=== PATIENT | female | born 1985 | race Caucasian/White ===

== ENCOUNTER 2016-05-08 16:00 | Emergency (ER) | payer SELFPAY ==
[~2016-05-08 16:00] MED LIST: Sodium Chloride 0.9% 1,000 ML BAG ONE
[2016-05-08] MEDS ORDERED: Ondansetron ODT 4 MG TAB ONE (17:08)
[2016-05-08] MEDS ORDERED: diphenhydrAMINE HCl 50 MG/ML 1 ML VIAL ONE (17:34)
[2016-05-08] MEDS ORDERED: Ketorolac Tromethamine 30 MG/ML VIAL ONE (17:34)
[2016-05-08] MEDS ORDERED: Dexamethasone 10 MG/ML VIAL ONE (17:34)
[2016-05-08] MEDS ORDERED: methylPREDNISolone Sod Succ/PF 125 MG/2 ML VIAL ONE (17:34)
[2016-05-08 18:43] LABS: Bilirubin Negative (Negative); Blood, Urine Large (Negative); Clarity Cloudy (Clear); Glucose, Urine (Dipstick) Negative (Negative); Leukocyte Negative (Negative); Nitrite Negative (Negative); Protein, Urine (Dipstick) Trace mg/dL (Neg-Trace); Urobilinogen 0.2 mg/dL (0.2-1.0)
[2016-05-08 18:48] LABS: Bacteria/HPF 3+ HPF (None Seen); RBC/HPF GREATER THAN 50-TNTC HPF (0-3)
[2016-05-08] MEDS ORDERED: cefTRIAXone\\ROCEPHIN 1 GM VIAL ONE (19:15)
== END 2016-05-08 19:50 | disposition home or self-care (01) ==
LOC: MADERS 16:00
DX: J06.9 Acute upper respiratory infection, unspecified (principal); N39.0 Urinary tract infection, site not specified; F17.210 Nicotine dependence, cigarettes, uncomplicated
CPT/HCPCS: 81003; 81015; 87086; 87430; 96361; 96374; 96375; J0696; J1100; J1200; J1885; J2270; J2930; J7050; Q0162

== ENCOUNTER 2016-05-16 16:57 | Emergency (ER) | payer SELFPAY ==
[2016-05-16] MEDS ORDERED: traMADol HCl 50 MG TAB ONE (18:19)
[2016-05-16] MEDS ORDERED: predniSONE 20 MG TAB ONE ×2 (18:19→18:22)
[2016-05-16] MEDS ORDERED: predniSONE 10 MG TAB ONE (18:19)
[2016-05-16] MEDS ORDERED: Amoxicillin/Potassium Clav 500 MG TAB ONE (18:19)
== END 2016-05-16 18:30 | disposition home or self-care (01) ==
LOC: MADERS 16:57
DX: J20.9 Acute bronchitis, unspecified (principal); F17.210 Nicotine dependence, cigarettes, uncomplicated
CPT/HCPCS: 99283; J7506; J7512

== ENCOUNTER 2016-06-24 18:29 | Emergency (ER) | payer SELFPAY ==
[~2016-06-24 18:29] MED LIST changes: +Iopamidol 370 76% 100 ML VIAL ONE; -Sodium Chloride 0.9% 1,000 ML BAG ONE
[2016-06-24 18:51] LABS: Bilirubin Negative (Negative); Blood, Urine Negative (Negative); Clarity Clear (Clear); Glucose, Urine (Dipstick) Negative (Negative); Leukocyte Negative (Negative); Nitrite Negative (Negative); Protein, Urine (Dipstick) Negative (Neg-Trace); Specific Gravity, Urine 1.015 (1.005-1.030); Urobilinogen 0.2 mg/dL (0.2-1.0)
[2016-06-24 18:53] LABS: Pregnancy Test - Urine (BHCG) NEGATIVE (NEGATIVE); Pregu Control Bar Appear? YES (CONTROL BAR); Specific Gravity 1.015 (1.002-1.036)
[2016-06-24 19:01] LABS: Bilirubin Negative (Negative); Blood, Urine Negative (Negative); Clarity Clear (Clear); Glucose, Urine (Dipstick) Negative (Negative); Leukocyte Negative (Negative); Nitrite Negative (Negative); Protein, Urine (Dipstick) Negative (Neg-Trace); Specific Gravity, Urine 1.015 (1.005-1.030); Urobilinogen 0.2 mg/dL (0.2-1.0)
[2016-06-24 19:02] LABS: Bacteria/HPF Rare-Few HPF (None Seen); RBC/HPF 0-3 HPF (0-3); WBC/HPF 0-3 HPF (0-3)
[2016-06-24] MEDS ORDERED: Ketorolac Tromethamine 30 MG/ML VIAL ONE (19:13)
[2016-06-24] MEDS ORDERED: Ondansetron HCl/PF 4 MG/2 ML Vial ONE (19:13)
[2016-06-24 19:21] LABS: #Basophils 0.1 thou/uL (0.0-0.2); #Eosinphils 0.1 thou/uL (0.0-0.7); #Lymphocytes 3.7 thou/uL (1.20-3.40); #Monocytes 0.5 thou/uL (0.11-0.59); #Neutrophils 4.2 thou/uL (1.40-6.50); %Basophils 0.9 % (0.0-1.0); %Eosinophils 1.6 % (0.0-10.0); %Lymphocytes 43.2 % (21.0-51.0); %Monocytes 5.6 % (0.0-10.0); %Neutrophils 48.7 % (42.0-75.0); Hemoglobin 11.9 g/dL (12.0-16.0); Mean Corpuscular HGB CONC 30.9 g/dL (32.0-36.0); Mean Corpuscular Hemoglobin 28.1 pg (27.0-31.0); Mean Corpuscular Volume 90.7 fl (81.0-99.0); Mean Platelet Volume 6.3 fL (7.4-10.4); Platelet Count 285 thou/uL (130-400); RBC Distribution Width 16.5 % (11.5-14.5); Red Blood Cell (RBC) Count 4.23 mill/uL (4.20-5.40); White Blood Cell (WBC) Count 8.6 thou/uL (4.8-10.8)
[2016-06-24 19:39] LABS: ALT (SGPT) 13 U/L (0-55); AST (SGOT) 13 U/L (5-34); Alkaline Phosphatase 115 U/L (40-150); Anion Gap 16 mmol/L (10-20); BUN (Urea Nitrogen) 8 mg/dL (7.0-18.7); Bilirubin, Total Less than 0.3 mg/dL (0.2-1.2); CRP (Inflammatory) 0.74 mg/dL (= or < 0.5); Calc. Creatinine Clearance 0 mL/min (70-130); Calcium 9.8 mg/dL (7.8-10.44); Carbon Dioxide 24 mmol/L (22-29); Chloride 103 mmol/L (98-107); Estimated GFR-MDRD 87; Globulin 3.3 g/dL (2.4-3.5); Glucose 97 mg/dL (70-105); Potassium 3.7 mmol/L (3.5-5.1); Protein, Total 7.3 g/dL (6.0-8.3); Sodium 139 mmol/L (136-145)
--- NOTE | 2016-06-24 20:05 | CT ---
CT ABDOMEN AND PELVIS WITH CONTRAST 06/24/16 Multiple axial tomograms obtained through the abdomen and pelvis with IV enhancement. Oral contrast was not given. HISTORY: Severe low back pain. Liver, spleen, and pancreas unremarkable. Stomach and duodenum unremarkable. Post cholecystectomy ch anges are noted. Adrenal gland and kidneys unremarkable. No evidence of hydronephrosis. No evidence of urinary tract calculus. Small bowel loops appear normal. Appendix not definitely identified. Colon unremarkable. Images thro ugh the pelvis reveal a septated cystic mass posterior to the uterus and slightly to the right of mi dline which measures 8 cm AP dimension x approximately 5 cm width. There is a second smaller cystic lesion which appears to arise from the right ovary measuring 2.0 cm. The uterus is unremarkable in s ize. IMPRESSION: A large septated cystic mass in the pelvis posterior to the uterus slightly to the right. This abuts the posterior aspect of the ovary and may be an exophytic cyst from the ovary, although this cannot be confirmed. There is a smaller cyst that does involve the right ovary as described above. Recomme nd serum HCG to exclude ectopic . If serum HCG is negative, suggest [facility] consultation and fo llowup. CT LUMBAR SPINE: Sagittal and coronal images of lumbar spine obtained. The lumbar vertebrae maintain normal height an d alignment. Broad based disc bulge is seen at L2-3, L3-4, and L4-5 without disc protrusion. Mild ce ntral canal stenosis is noted. POS: [facility]
[2016-06-24 21:46] LABS: BHCG - Serum NEGATIVE (NEGATIVE); Pregs Control Background? CLEAR/WHITE (CLR/WHITE); Pregs Control Bar Appear? YES (CONTROL BAR)
== END 2016-06-24 22:20 | disposition home or self-care (01) ==
LOC: MADERS 18:29
DX: M54.5 Low back pain (principal); F17.210 Nicotine dependence, cigarettes, uncomplicated
CPT/HCPCS: 74177; 80053; 81003; 81025; 84702; 84703; 85025; 86140; 87086; 96374; 96375; 96376; J1885; J2270; J2405

== ENCOUNTER 2016-07-03 19:20 | Emergency (ER) | payer SELFPAY ==
[2016-07-03] MEDS ORDERED: HYDROcodone/Acetaminophen 10/325 mg Tablet ONE (21:07)
[2016-07-03] MEDS ORDERED: Naproxen 500 MG TAB ONE (21:07)
[2016-07-03] MEDS ORDERED: diphenhydrAMINE HCl 25 MG CAP ONE (21:07)
== END 2016-07-03 21:26 | disposition home or self-care (01) ==
LOC: MADERS 19:20
DX: S20.162A Insect bite (nonvenomous) of breast, left breast, initial encounter (principal); M54.2 Cervicalgia; F17.210 Nicotine dependence, cigarettes, uncomplicated; W57.XXXA Bitten or stung by nonvenomous insect and other nonvenomous arthropods, initial encounter
CPT/HCPCS: 96372; J1040

== ENCOUNTER 2016-07-16 18:11 | Emergency (ER) | payer MEDICAID, SELFPAY ==
[2016-07-16] MEDS ORDERED: Ketorolac Tromethamine 60 MG/2 ML VIAL ONE (18:40)
[2016-07-16] MEDS ORDERED: HYDROcodone/Acetaminophen 5/325 mg Tablet ONE (19:15)
[2016-07-16] MEDS ORDERED: Ondansetron ODT 4 MG TAB ONE (19:17)
== END 2016-07-16 20:00 | disposition home or self-care (01) ==
LOC: MADERS 18:11
DX: M54.5 Low back pain (principal); F17.210 Nicotine dependence, cigarettes, uncomplicated
CPT/HCPCS: 96372; J1885; Q0162

== ENCOUNTER 2016-08-24 11:33 | Outpatient (CLI) | payer MEDICAID ==
[2016-08-24 12:19] LABS: #Basophils 0.1 thou/uL (0.0-0.2); #Eosinphils 0.3 thou/uL (0.0-0.7); #Lymphocytes 2.9 thou/uL (1.20-3.40); #Monocytes 0.7 thou/uL (0.11-0.59); %Basophils 0.6 % (0.0-1.0); %Eosinophils 2.7 % (0.0-10.0); %Lymphocytes 26.6 % (21.0-51.0); %Monocytes 6.6 % (0.0-10.0); %Neutrophils 63.5 % (42.0-75.0); Hemoglobin 12.2 g/dL (12.0-16.0); Mean Corpuscular HGB CONC 31.3 g/dL (32.0-36.0); Mean Corpuscular Hemoglobin 28.6 pg (27.0-31.0); Mean Corpuscular Volume 91.5 fl (81.0-99.0); Mean Platelet Volume 6.4 fL (7.4-10.4); Platelet Count 335 thou/uL (130-400); RBC Distribution Width 16.5 % (11.5-14.5); Red Blood Cell (RBC) Count 4.27 mill/uL (4.20-5.40); White Blood Cell (WBC) Count 11.1 thou/uL (4.8-10.8)
[2016-08-24 12:37] LABS: ALT (SGPT) 13 U/L (8-55); AST (SGOT) 14 U/L (5-34); Albumin 3.7 g/dL (3.5-5.0); Alkaline Phosphatase 119 U/L (40-150); Anion Gap 11 mmol/L (10-20); BUN (Urea Nitrogen) 11 mg/dL (7.0-18.7); Bilirubin, Total Less than 0.3 mg/dL (0.2-1.2); Calc. Creatinine Clearance 0 mL/min (70-130); Calcium 8.8 mg/dL (7.8-10.44); Carbon Dioxide 25 mmol/L (22-29); Cardiac Risk 4.7 (Less than 4.5); Chloride 104 mmol/L (98-107); Cholesterol 180 mg/dl (< 200 Desired); Estimated GFR-MDRD Greater than 90; Globulin 3.8 g/dL (2.4-3.5); Glucose 117 mg/dL (70-105); HDL Cholesterol 38 mg/dL (>60 Neg Risk); LDL Cholesterol, Calculated 109 mg/dL; Protein, Total 7.5 g/dL (6.0-8.3); Sodium 136 mmol/L (136-145); Triglycerides 167 mg/dL (Less than 150)
== END 2016-08-24 11:34 | disposition home or self-care (01) ==
LOC: MADLAB 11:33
DX: Z00.00 Encounter for general adult medical examination without abnormal findings (principal); E55.9 Vitamin D deficiency, unspecified; R53.83 Other fatigue; R19.07 Generalized intra-abdominal and pelvic swelling, mass and lump
CPT/HCPCS: 36415; 80050; 80061; 86304

== ENCOUNTER 2016-08-29 09:16 | Emergency (ER) | payer MEDICAID ==
[2016-08-29 10:07] LABS: Bilirubin Negative (Negative); Blood, Urine Trace (Negative); Clarity Clear (Clear); Glucose, Urine (Dipstick) Negative (Negative); Leukocyte Negative (Negative); Nitrite Negative (Negative); Protein, Urine (Dipstick) Negative (Neg-Trace); Urobilinogen 0.2 mg/dL (0.2-1.0)
[2016-08-29 10:08] LABS: Pregnancy Test - Urine (BHCG) Negative (Negative); Pregu Control Background? CLEAR/WHITE (CLR/WHITE); Pregu Control Bar Appear? YES (CONTROL BAR)
[2016-08-29 10:08] LABS: Bacteria/HPF Rare-Few HPF (None Seen); RBC/HPF 0-3 HPF (0-3); Squamous Epithelial 0-3 HPF (0-3); WBC/HPF 0-3 HPF (0-3)
[2016-08-29] MEDS ORDERED: HYDROcodone/Acetaminophen 5/325 mg Tablet ONE (10:09)
[2016-08-29] MEDS ORDERED: Ketorolac Tromethamine 60 MG/2 ML VIAL ONE (10:10)
== END 2016-08-29 10:50 | disposition home or self-care (01) ==
LOC: MADERS 09:16
DX: N85.8 Other specified noninflammatory disorders of uterus (principal); F17.210 Nicotine dependence, cigarettes, uncomplicated
CPT/HCPCS: 81003; 81015; 81025; 96372; J1885

== ENCOUNTER 2016-08-31 05:20 | Emergency (ER) | payer MEDICAID ==
[2016-08-31] MEDS ORDERED: Diazepam 5 MG TAB ONE ×2 (06:30→06:42)
[2016-08-31] MEDS ORDERED: Ketorolac Tromethamine 60 MG/2 ML VIAL ONE (06:30)
[2016-08-31] MEDS ORDERED: HYDROcodone/Acetaminophen 10/325 mg Tablet ONE ×2 (06:30→06:42)
[2016-08-31] MEDS ORDERED: Ketorolac Tromethamine 30 MG/ML VIAL ONE (06:43)
[2016-08-31] MEDS ORDERED: Sodium Chloride 0.9% 1,000 ML BAG ONE (07:35)
[2016-08-31 07:55] LABS: #Basophils 0.1 thou/uL (0.0-0.2); #Eosinphils 0.2 thou/uL (0.0-0.7); #Lymphocytes 2.7 thou/uL (1.20-3.40); #Monocytes 0.7 thou/uL (0.11-0.59); %Basophils 0.5 % (0.0-1.0); %Lymphocytes 23.1 % (21.0-51.0); %Monocytes 6.2 % (0.0-10.0); %Neutrophils 68.2 % (42.0-75.0); Hemoglobin 10.8 g/dL (12.0-16.0); Mean Corpuscular HGB CONC 31.8 g/dL (32.0-36.0); Mean Corpuscular Hemoglobin 28.6 pg (27.0-31.0); Mean Platelet Volume 6.7 fL (7.4-10.4); Platelet Count 328 thou/uL (130-400); RBC Distribution Width 16.4 % (11.5-14.5); Red Blood Cell (RBC) Count 3.78 mill/uL (4.20-5.40); White Blood Cell (WBC) Count 11.7 thou/uL (4.8-10.8)
[2016-08-31 08:06] LABS: Anion Gap 11 mmol/L (10-20); BUN (Urea Nitrogen) 11 mg/dL (7.0-18.7); Calc. Creatinine Clearance 0 mL/min (70-130); Calcium 8.7 mg/dL (7.8-10.44); Carbon Dioxide 22 mmol/L (22-29); Chloride 109 mmol/L (98-107); Estimated GFR-MDRD Greater than 90; Glucose 103 mg/dL (70-105); Potassium 4.2 mmol/L (3.5-5.1); Sodium 138 mmol/L (136-145)
--- NOTE | 2016-08-31 08:06 | ULT ---
PELVIC SONOGRAM TRANSABDOMINAL AND TRANSVAGINAL IMAGING WITH DUPLEX EVALUATION: Date: 08/31/16 HISTORY: Pelvic pain. Bleeding. Pelvic mass on recent CT. FINDINGS: Urinary bladder is unremarkable. The uterus has a very heterogeneous echotexture and measures up to 9.9 cm in length. Endometrium is 0.9 cm in thickness. A fibroid involving the posterior myometrium i s 7.7 x 5.9 x 4.3 cm greatest diameter. The right ovary is 1.8 cm in length and the left is 1.6 cm. Each contains follicles and demonstrates good color and spectral Doppler flow. The large right adnexal cystic lesion seen on prior CT from 0 06/24/16 is not evidence on today's study. IMPRESSION: Large posterior uterine fibroid. POS: [facility]
[2016-08-31] MEDS ORDERED: Gabapentin 100 MG CAP ONE (08:47)
[2016-08-31 10:34] LABS: Bilirubin Negative (Negative); Clarity Clear (Clear); Glucose, Urine (Dipstick) Negative (Negative); Leukocyte Trace (Negative); Nitrite Negative (Negative); Protein, Urine (Dipstick) Negative (Neg-Trace); Urobilinogen 0.2 mg/dL (0.2-1.0); pH, Urine 7.5 (5.0-9.0)
[2016-08-31 10:35] LABS: Bacteria/HPF Rare-Few HPF (None Seen); Blood, Urine Large (Negative); RBC/HPF 21-50 HPF (0-3); Squamous Epithelial 0-3 HPF (0-3); WBC/HPF 0-3 HPF (0-3)
--- NOTE | 2016-08-31 10:52 | CT ---
CT LUMBAR SPINE NONCONTRAST: Date: 08/31/16 HISTORY: Low back pain. Pelvic mass. FINDINGS: Vertebral body height and alignment are maintained. Mild posterior disc bulges are present at the L2 -3, L3-4, and L4-5 levels. No focal disc herniation is apparent. The neural foramina remain patent. Vertebral body heights and alignment are maintained. No acute fracture or dislocation are evident. Scattered dystrophic calcifications are apparent within the anterior lower abdominal fat. Partially visualized within the right posterior pelvis, a lobulated low density mass containing an i nternal septation now measures up to 8.2 x 5.3 cm greatest diameter, slightly larger than on the wilbur or study. A 2.0 mm calculus is present within the nondilated ronan at the superior pole of the left kidney. IMPRESSION: 1. Mild degenerative changes of the lumbar spine. No acute osseous abnormalities are demonstrated. 2. Tiny nonobstructing left renal calculus. 3. Persistent large low density right posterior pelvic mass, near the right ovary but favored to no t arise from the ovary. While it was thought to be a uterine fibroid on recent sonogram, it appears separate from the uterus on this study. Differential diagnosis is that of a complex adnexal mass. En dometrioma must be considered. Please consider gynecologic consultation and pelvic MRI, with and wit hout Gadolinium contrast, for better characterization. 4. Mild degenerative changes of the lumbar spine. 5. Tiny, nonobstructing left renal calculus. Findings called to Dr. Merrill in the [place] emergency department at 1030 hours. CODE CR. POS: [facility]
--- NOTE | 2016-08-31 10:56 | CT ---
CT OF PELVIS NONCONTRAST: INDICATION: Pelvic pain. FINDINGS: Hip joints are maintained. Symphysis pubis and sacroiliac joints are intact. Small sclerotic focus of the left acetabulum indicates bone island. There is no acute pelvic fracture. There is a large cystic lesion of the posterior right pelvis, with probable internal septation, although incompletel y assessed by noncontrast pelvic CT. Diameter of this finding is greater than 7 cm. IMPRESSION: 1. No acute osseous abnormality of the pelvis. 2. Incidental note of a large cystic lesion of the pelvis. Please reference the concurrent CT lumb ar spine evaluation for details regarding characterization/followup. POS: [facility]
== END 2016-08-31 13:07 | disposition short-term general hospital (02) ==
LOC: MADERS 05:20
DX: G90.522 Complex regional pain syndrome I of left lower limb (principal); F17.210 Nicotine dependence, cigarettes, uncomplicated; Z79.899 Other long term (current) drug therapy
CPT/HCPCS: 72131; 72192; 76856; 80048; 81003; 81015; 85025; 96361; 96374; 96376; J1170; J1885; J7050

== ENCOUNTER 2016-09-12 09:41 | Emergency (ER) | payer MEDICAID, SELFPAY ==
[2016-09-12] MEDS ORDERED: Ondansetron HCl/PF 4 MG/2 ML Vial ONE (10:01)
[2016-09-12] MEDS ORDERED: Dicyclomine HCl 20 mg/2 ml Ampule ONE (10:01)
[2016-09-12] MEDS ORDERED: Ketorolac Tromethamine 30 MG/ML VIAL ONE (10:01)
[2016-09-12 10:26] LABS: Bilirubin Negative (Negative); Blood, Urine Negative (Negative); Clarity Clear (Clear); Glucose, Urine (Dipstick) Negative (Negative); Leukocyte Negative (Negative); Nitrite Negative (Negative); Protein, Urine (Dipstick) Negative (Neg-Trace); Urobilinogen 0.2 mg/dL (0.2-1.0); pH, Urine 8.5 (5.0-9.0)
[2016-09-12 10:29] LABS: Pregnancy Test - Urine (BHCG) Negative (Negative); Pregu Control Background? CLEAR/WHITE (CLR/WHITE); Pregu Control Bar Appear? YES (CONTROL BAR)
[2016-09-12 10:38] LABS: #Basophils 0.1 thou/uL (0.0-0.2); #Eosinphils 0.1 thou/uL (0.0-0.7); #Lymphocytes 1.7 thou/uL (1.20-3.40); #Monocytes 0.5 thou/uL (0.11-0.59); #Neutrophils 9.5 thou/uL (1.40-6.50); %Basophils 0.7 % (0.0-1.0); %Eosinophils 0.8 % (0.0-10.0); %Lymphocytes 13.8 % (21.0-51.0); %Monocytes 4.5 % (0.0-10.0); %Neutrophils 80.2 % (42.0-75.0); Hemoglobin 12.4 g/dL (12.0-16.0); Mean Corpuscular HGB CONC 31.4 g/dL (32.0-36.0); Mean Corpuscular Hemoglobin 28.4 pg (27.0-31.0); Mean Corpuscular Volume 90.3 fl (81.0-99.0); Mean Platelet Volume 6.8 fL (7.4-10.4); Platelet Count 290 thou/uL (130-400); RBC Distribution Width 15.8 % (11.5-14.5); Red Blood Cell (RBC) Count 4.36 mill/uL (4.20-5.40); White Blood Cell (WBC) Count 11.9 thou/uL (4.8-10.8)
[2016-09-12 10:42] LABS: ALT (SGPT) 17 U/L (8-55); AST (SGOT) 19 U/L (5-34); Albumin 3.8 g/dL (3.5-5.0); Alkaline Phosphatase 112 U/L (40-150); Anion Gap 16 mmol/L (10-20); BUN (Urea Nitrogen) 9 mg/dL (7.0-18.7); Bilirubin, Total 0.3 mg/dL (0.2-1.2); Calc. Creatinine Clearance 0 mL/min (70-130); Calcium 9.3 mg/dL (7.8-10.44); Carbon Dioxide 18 mmol/L (22-29); Chloride 106 mmol/L (98-107); Estimated GFR-MDRD Greater than 90; Globulin 3.8 g/dL (2.4-3.5); Glucose 124 mg/dL (70-105); Lipase 32 U/L (8-78); Potassium 3.9 mmol/L (3.5-5.1); Protein, Total 7.6 g/dL (6.0-8.3); Sodium 136 mmol/L (136-145)
--- NOTE | 2016-09-12 10:44 | CT ---
CT BRAIN NONCONTRAST: HISTORY: 30-year-old female with altered mental status. FINDINGS: The ventricles are normal in size and configuration. There is no midline shift or any other mass ef fect. There is no evidence of acute intracranial hemorrhage, large cortical infarct, or extraaxial fluid collection. The osorio matter /white matter differentiation is maintained. The calvarium is in tact. The tympanomastoid cavities, and the upper portions of the paranasal sinuses included in thes e images, are grossly clear. IMPRESSION: Normal. nithya POS: [facility]
== END 2016-09-12 11:12 | disposition home or self-care (01) ==
LOC: MADERS 09:41
DX: R10.13 Epigastric pain (principal); R06.4 Hyperventilation; F17.210 Nicotine dependence, cigarettes, uncomplicated; Z87.442 Personal history of urinary calculi
CPT/HCPCS: 36416; 70450; 80053; 81003; 81025; 83690; 85025; 93005; 96372; 96374; 96375; 36415-59; J1885; J2405

== ENCOUNTER 2017-01-08 16:28 | Emergency (ER) | payer MEDICAID, OTHER ==
[~2017-01-08 16:28] MED LIST changes: -Iopamidol 370 76% 100 ML VIAL ONE; +Sodium Chloride 0.9% 1,000 ML BAG ONE
[2017-01-08 17:04] LABS: Bilirubin Negative (Negative); Blood, Urine Large (Negative); Clarity Clear (Clear); Glucose, Urine (Dipstick) Negative (Negative); Leukocyte Negative (Negative); Nitrite Negative (Negative); Protein, Urine (Dipstick) Trace mg/dL (Neg-Trace); Urobilinogen 0.2 mg/dL (0.2-1.0)
[2017-01-08 17:09] LABS: RBC/HPF GREATER THAN 50-TNTC HPF (0-3)
[2017-01-08 17:52] LABS: Squamous Epithelial 0-3 HPF (0-3); WBC/HPF 0-3 HPF (0-3)
[2017-01-08 17:53] LABS: Bacteria/HPF Rare-Few HPF (None Seen)
[2017-01-08] MEDS ORDERED: Morphine 10 MG/ML VIAL ONE ×3 (18:01→21:49)
[2017-01-08] MEDS ORDERED: Ondansetron HCl/PF 4 MG/2 ML Vial ONE (18:01)
[2017-01-08] MEDS ORDERED: Ketorolac Tromethamine 30 MG/ML VIAL ONE (18:01)
[2017-01-08] MEDS ORDERED: HYDROcodone/Acetaminophen 10/325 mg Tablet ONE (18:32)
[2017-01-08] MEDS ORDERED: Naproxen 500 MG TAB ONE (18:32)
[2017-01-08] MEDS ORDERED: Sulfameth/Trimethoprim DS 800-160mg TAB ONE (19:23)
[2017-01-08] MEDS ORDERED: cefTRIAXone\\ROCEPHIN 2 GM VIAL ONE (19:23)
--- NOTE | 2017-01-08 19:49 | CT ---
ABDOMEN AND PELVIC CT SCAN WITHOUT IV CONTRAST: History: 31-year-old female with left flank pain. FINDINGS: Noncontrast abdomen and pelvis CT scan performed. The lung base are clear. Status post cholecystecto my. Visualized liver, pancreas, spleen and adrenal glands are unremarkable. A small punctate nonobst ructing left upper pole renal calculus. No evidence for acute obstruction. Normal appearing appen roni. Large 5.0 x 8.1 cm diameter septated right adnexal cyst or cystic mass which appears to be sept ated. It does not appear to be significantly changed from a 06-14-16 study and was present back on study, although may be very slightly larger now. No abscess or abnormal fluid collection. Smal l scattered right lower quadrant mesenteric lymph nodes. IMPRESSION: No significant acute process in the abdomen or pelvis. Tiny nonobstructing left upper pole renal parminder culus, but no acute obstruction. Normal appearing appendix. Overall stable septated right adnexal cystic mass. POS: [facility]
[2017-01-08 20:39] LABS: #Basophils 0.1 thou/uL (0.0-0.2); #Eosinphils 0.1 thou/uL (0.0-0.7); #Lymphocytes 3.4 thou/uL (1.20-3.40); #Monocytes 0.7 thou/uL (0.11-0.59); #Neutrophils 5.4 thou/uL (1.40-6.50); %Basophils 0.7 % (0.0-1.0); %Eosinophils 0.6 % (0.0-10.0); %Lymphocytes 35.5 % (21.0-51.0); %Monocytes 6.8 % (0.0-10.0); %Neutrophils 56.5 % (42.0-75.0); Mean Corpuscular HGB CONC 31.5 g/dL (32.0-36.0); Mean Corpuscular Hemoglobin 29.2 pg (27.0-31.0); Mean Corpuscular Volume 92.8 fl (81.0-99.0); Platelet Count 290 thou/uL (130-400); RBC Distribution Width 16.8 % (11.5-14.5); Red Blood Cell (RBC) Count 3.78 mill/uL (4.20-5.40); White Blood Cell (WBC) Count 9.5 thou/uL (4.8-10.8)
[2017-01-08 20:59] LABS: ALT (SGPT) 35 U/L (8-55); AST (SGOT) 16 U/L (5-34); Albumin 3.5 g/dL (3.5-5.0); Alkaline Phosphatase 116 U/L (40-150); Anion Gap 12 mmol/L (10-20); BUN (Urea Nitrogen) 8 mg/dL (7.0-18.7); Bilirubin, Total Less than 0.3 mg/dL (0.2-1.2); Calc. Creatinine Clearance 0 mL/min (70-130); Calcium 8.6 mg/dL (7.8-10.44); Carbon Dioxide 24 mmol/L (22-29); Chloride 110 mmol/L (98-107); Estimated GFR-MDRD Greater than 90; Globulin 3.1 g/dL (2.4-3.5); Glucose 82 mg/dL (70-105); Protein, Total 6.6 g/dL (6.0-8.3); Sodium 142 mmol/L (136-145)
== END 2017-01-08 21:57 | disposition home or self-care (01) ==
LOC: MADERS 16:28
DX: R10.9 Unspecified abdominal pain (principal); F17.210 Nicotine dependence, cigarettes, uncomplicated; Z79.899 Other long term (current) drug therapy
CPT/HCPCS: 74176; 80053; 81001; 85025; 87086; 96365; 96375; 96376; J0696; J1885; J2270; J2405; J7050

== ENCOUNTER 2017-03-10 16:47 | Emergency (ER) | payer OTHER ==
[~2017-03-10 16:47] MED LIST changes: +Iopamidol 370 76% 100 ML VIAL ONE; -Sodium Chloride 0.9% 1,000 ML BAG ONE
[2017-03-10 18:42] LABS: Bilirubin Negative (Negative); Blood, Urine Negative (Negative); Clarity Clear (Clear); Glucose, Urine (Dipstick) Negative (Negative); Leukocyte Negative (Negative); Nitrite Negative (Negative); Protein, Urine (Dipstick) Negative (Neg-Trace); Specific Gravity, Urine 1.015 (1.005-1.030); Urobilinogen 0.2 mg/dL (0.2-1.0)
[2017-03-10 19:05] LABS: ALT (SGPT) 15 U/L (8-55); AST (SGOT) 15 U/L (5-34); Albumin 3.8 g/dL (3.5-5.0); Alkaline Phosphatase 127 U/L (40-150); Anion Gap 15 mmol/L (10-20); BUN (Urea Nitrogen) 7 mg/dL (7.0-18.7); Bilirubin, Total 0.2 mg/dL (0.2-1.2); Calc. Creatinine Clearance 0 mL/min (70-130); Calcium 9.2 mg/dL (7.8-10.44); Carbon Dioxide 24 mmol/L (22-29); Chloride 106 mmol/L (98-107); Estimated GFR-MDRD Greater than 90; Globulin 3.9 g/dL (2.4-3.5); Glucose 101 mg/dL (70-105); Potassium 3.9 mmol/L (3.5-5.1); Protein, Total 7.7 g/dL (6.0-8.3); Sodium 141 mmol/L (136-145)
[2017-03-10] MEDS ORDERED: Ondansetron HCl/PF 4 MG/2 ML Vial ONE (19:09)
[2017-03-10] MEDS ORDERED: Morphine 4 MG/ML VIAL ONE (19:09)
[2017-03-10 19:44] LABS: #Basophils 0.1 thou/uL (0.0-0.2); #Eosinphils 0.9 thou/uL (0.0-0.7); #Lymphocytes 3.1 thou/uL (1.20-3.40); #Monocytes 0.5 thou/uL (0.11-0.59); #Neutrophils 6.3 thou/uL (1.40-6.50); %Eosinophils 8.1 % (0.0-10.0); %Lymphocytes 28.5 % (21.0-51.0); %Monocytes 4.3 % (0.0-10.0); %Neutrophils 58.1 % (42.0-75.0); Anisocytosis SLIGHT = 6-15 cells (100X) (0-5/hpf); Hemoglobin 10.2 g/dL (12.0-16.0); MDiff Complete? YES; Mean Corpuscular Volume 93.1 fl (81.0-99.0); Mean Platelet Volume 5.6 fL (7.4-10.4); Platelet Count 432 thou/uL (130-400); RBC Distribution Width 16.4 % (11.5-14.5); Red Blood Cell (RBC) Count 3.66 mill/uL (4.20-5.40); White Blood Cell (WBC) Count 10.9 thou/uL (4.8-10.8)
--- NOTE | 2017-03-10 22:22 | CT ---
CT OF THE ABDOMEN AND PELVIS WITH IV CONTRAST 03/10/17 INDICATION: Right leg numbness and pain since hysterectomy on 03/09/17. FINDINGS: The complex hypodense lesion involving the posterior aspect of the right hemipelvis is stable in size measuring 7.1 x 4.9 cm where it previously measured 7.9 x 5.2 cm on a comparison dated 06/24/16. Ther e is some internal increased density seen within the lesion that may reflect some interval hemorrhag e. This is closely abutting the right piriformis muscle and anterior aspect of the mid sacrum. The uterus is now surgically absent. No definite free fluid is evident. Unopacified small and large b owel appear within normal limits. Lung bases are clear. No free air is demonstrated. The gallbladder is surgically absent. There is a stable displaced stone seen within Castro's pouch. Kidneys, pancreas, and spleen appear within normal limits. No definite acute osseous abnormality is evident. IMPRESSION: 1. Interval hysterectomy. 2. Slight increased density seen within the hypodense mass previously noted on multiple CT exami nations may reflect interval hemorrhage within the lesion. This was suspected to reflect a possible e ndometrioma on a comparison pelvic ultrasound dated 08/31/16. MR examination may be helpful for improv ed characterization. Would also recommend correlation with the operative note from the patient's rece nt hysterectomy. 3. No free fluid is demonstrated. 4. Postsurgical changes of cholecystectomy with displaced spilled gallstones within Castro's p ouch which are stable to the prior exam. POS: [facility]
== END 2017-03-10 19:50 | disposition home or self-care (01) ==
LOC: MADERS 16:47
DX: G89.18 Other acute postprocedural pain (principal); R10.31 Right lower quadrant pain; F17.210 Nicotine dependence, cigarettes, uncomplicated
CPT/HCPCS: 74177; 80053; 81003; 85025; 96374; 96375; J2270; J2405

== ENCOUNTER 2017-03-28 11:44 | Emergency (ER) | payer OTHER, SELFPAY ==
[2017-03-28] MEDS ORDERED: Ketorolac Tromethamine 30 MG/ML VIAL ONE (12:30)
[2017-03-28 12:40] LABS: Bacteria/HPF Rare-Few HPF (None Seen); Bilirubin Negative (Negative); Blood, Urine Negative (Negative); Clarity Clear (Clear); Glucose, Urine (Dipstick) Negative (Negative); Leukocyte Negative (Negative); Nitrite Negative (Negative); Protein, Urine (Dipstick) Negative (Neg-Trace); RBC/HPF 0-3 HPF (0-3); Squamous Epithelial 0-3 HPF (0-3); Urobilinogen 0.2 mg/dL (0.2-1.0); WBC/HPF 0-3 HPF (0-3); pH, Urine 6.5 (5.0-9.0)
== END 2017-03-28 13:05 | disposition home or self-care (01) ==
LOC: MADERS 11:44
DX: S29.012A Strain of muscle and tendon of back wall of thorax, initial encounter (principal); M94.0 Chondrocostal junction syndrome [Tietze]; F41.9 Anxiety disorder, unspecified; F17.210 Nicotine dependence, cigarettes, uncomplicated; Z87.442 Personal history of urinary calculi; Z79.891 Long term (current) use of opiate analgesic; Z79.899 Other long term (current) drug therapy
CPT/HCPCS: 36416; 81001; 96372; J1885

== ENCOUNTER 2018-01-30 09:11 | Outpatient (CLI) | payer OTHER, SELFPAY ==
[2018-01-30 10:05] LABS: Amphetamine Not Detected (NotDetected); Barbiturates Screen Not Detected (NotDetected); Benzodiazepine Screen Detected (NotDetected); Cocaine Metabolite Screen Not Detected (NotDetected); Medtox Control Line Valid? VALID (VALID); Methadone Not Detected (NotDetected); Methamphetamine Not Detected (NotDetected); Opiate Screen Detected (NotDetected); Oxycodone Screen Not Detected (NotDetected); Phencyclidine (PCP) Not Detected (NotDetected); THC/Cannabinoid Screen Not Detected (NotDetected); Tricyclic Screen Not Detected (NotDetected)
== END 2018-01-30 09:12 | disposition home or self-care (01) ==
LOC: MADLABBHPM 09:11
PROVIDERS: ATTEND Family Medicine
DX: F41.1 Generalized anxiety disorder (principal); M54.42 Lumbago with sciatica, left side
CPT/HCPCS: 80306

== ENCOUNTER 2018-05-20 17:25 | Emergency (ER) | payer OTHER ==
[2018-05-20] MEDS ORDERED: Lorazepam 1 MG TAB ONE (17:56)
[2018-05-20] MEDS ORDERED: Haloperidol Lactate 5 MG/ML VIAL ONE (17:57)
== END 2018-05-20 19:00 | disposition home or self-care (01) ==
LOC: MADERS 17:25
DX: F41.1 Generalized anxiety disorder (principal); F17.210 Nicotine dependence, cigarettes, uncomplicated; Z79.899 Other long term (current) drug therapy
CPT/HCPCS: 93005; 96372; J1630

== ENCOUNTER 2018-06-20 04:22 | Emergency (ER) | payer OTHER ==
[2018-06-20] MEDS ORDERED: HYDROmorphone 0.5 MG/0.5 ML SYRINGE ONE (04:58)
[2018-06-20] MEDS ORDERED: HYDROcodone/Acetaminophen 5/325 mg Tablet ONE (05:33)
[2018-06-20] MEDS ORDERED: Acetaminophen 325 MG TAB ONE (05:33)
[2018-06-20] MEDS ORDERED: Ketorolac Tromethamine 30 MG/ML VIAL ONE (05:33)
--- NOTE | 2018-06-20 08:13 | CT ---
LUMBAR SPINE CT NONCONTRAST: INDICATION: Back pain. FINDINGS: Vertebral body heights and alignment are maintained. Disk space heights are preserved. There is no significant osseous compromise of the central canal or neural foramina. The osseous structures revea l no acute destructive lesion. Degenerative sclerosis as well as cyst formation is seen at each sacr oiliac joint. IMPRESSION: 1. No acute osseous abnormality of the lumbar spine. 2. There is a suggestion of a possible protrusion of L2-3 with effacement of the ventral thecal sac contents, although this is difficult to reliably characterize. Disk bulges are also suggested at L4- 5 and L5-S1. Recommend followup with MRI of lumbar spine for further characterization. CODE T POS: [facility]
--- NOTE | 2018-06-20 08:26 | CT ---
CT OF ABDOMEN AND PELVIS WITH CONTRAST: COMPARISON: 03/10/2017. CLINICAL HISTORY: Low back pain. History of mass. FINDINGS: The previously documented mass of the posterior right pelvic cavity has decreased in volume, now jose uring 4.8 x 3.3 cm, compared to 7.1 x 4.9 cm in a similar location on prior exam. The mixed-density portion of the mass, with extrinsic, relative hyperdensity along its right lateral aspect is redemons trated to indicate a partially cystic and solid mass. Solid abdominal organs are stable. Evidence of prior cholecystectomy. The bowel is incompletely lana luated without enteric contrast administration. The visualized lung bases are clear. There is proba ble sequelae from injection at the right gluteal soft tissues. IMPRESSION: Interval size reduction of previously documented mass of the posterior right pelvis which remains cys tic and solid in morphology. Size reduction could relate to interval resolution of internal hemorrha gic process, as was previously considered. A neoplastic process cannot be excluded on the basis of t his exam and, therefore, appropriate clinical management/followup should be continued. POS: [facility]
[2018-06-20] MEDS ORDERED: Iopamidol 370 76% 100 ML VIAL ONE (09:06)
== END 2018-06-20 06:35 | disposition home or self-care (01) ==
LOC: MADERS 04:22
DX: M54.5 Low back pain (principal); M79.10 Myalgia, unspecified site; F17.210 Nicotine dependence, cigarettes, uncomplicated; Z79.891 Long term (current) use of opiate analgesic; Z79.899 Other long term (current) drug therapy; Z87.442 Personal history of urinary calculi
CPT/HCPCS: 72132; 74177; 96372; 96374; J1170; J1885; Q9967

== ENCOUNTER 2018-06-26 17:56 | Emergency (ER) | payer OTHER ==
[2018-06-26] MEDS ORDERED: Prochlorperazine 10 MG/2 ML VIAL ONE (18:12)
[2018-06-26] MEDS ORDERED: Lorazepam 2 MG/ML VIAL ONE ×2 (18:12→18:28)
[2018-06-26] MEDS ORDERED: Sodium Chloride 0.9% 1,000 ML ONE (18:12)
[2018-06-26 18:34] LABS: ALT (SGPT) 295 U/L (8-55); AST (SGOT) 136 U/L (5-34); Alkaline Phosphatase 195 U/L (40-150); Anion Gap 22 mmol/L (10-20); BUN (Urea Nitrogen) 14 mg/dL (7.0-18.7); Bilirubin, Total 0.9 mg/dL (0.2-1.2); Calc. Creatinine Clearance 0 mL/min (70-130); Calcium 9.7 mg/dL (7.8-10.44); Carbon Dioxide 19 mmol/L (22-29); Chloride 99 mmol/L (98-107); Estimated GFR-MDRD Greater than 90; Globulin 4.1 g/dL (2.4-3.5); Glucose 108 mg/dL (70-105); Lipase 14 U/L (8-78); Protein, Total 8.1 g/dL (6.0-8.3); Sodium 136 mmol/L (136-145)
[2018-06-26 18:37] LABS: Hemoglobin 14.6 g/dL (12.0-16.0); Lymphocytes 12 % (21-51); MDiff Complete? YES; Mean Corpuscular HGB CONC 31.4 g/dL (32.0-36.0); Mean Corpuscular Hemoglobin 28.1 pg (27.0-31.0); Mean Corpuscular Volume 89.6 fL (78.0-98.0); Mean Platelet Volume 6.1 fL (7.4-10.4); Monocytes 3 % (0-10); Neutrophil 73 % (42-75); Platelet Count 313 thou/uL (130-400); Platelet Morphology Comment Appears Adequate; RBC Distribution Width 15.4 % (11.5-14.5); RBC Morphology Normal; Reactive Lymphocytes 12 % (0-10); Red Blood Cell (RBC) Count 5.19 mill/uL (4.20-5.40); White Blood Cell (WBC) Count 9.2 thou/uL (4.8-10.8)
[2018-06-26] MEDS ORDERED: Morphine 4 MG/ML VIAL ONE (18:59)
--- NOTE | 2018-06-26 19:04 | RAD ---
CHEST ONE VIEW: 06/26/18 HISTORY: Chest pain, shortness of breath. Heart size and mediastinum are within normal limits. The lungs appear clear of any infiltrative proce ss. No signs of failure. IMPRESSION: No active intrathoracic disease. POS: [facility]
[2018-06-26] MEDS ORDERED: Sodium Chloride 0.9% 100 ML ONE (19:39)
[2018-06-26] MEDS ORDERED: Piperacillin/Tazobactam 4.5 GM VIAL ONE (19:39)
[2018-06-26] MEDS ORDERED: Acetaminophen 500 MG TAB ONE (19:43)
[2018-06-26 20:37] LABS: Amphetamine Not Detected (NotDetected); Barbiturates Screen Not Detected (NotDetected); Benzodiazepine Screen Detected (NotDetected); Cocaine Metabolite Screen Not Detected (NotDetected); Medtox Control Line Valid? VALID (VALID); Methadone Not Detected (NotDetected); Methamphetamine Not Detected (NotDetected); Opiate Screen Detected (NotDetected); Oxycodone Screen Not Detected (NotDetected); Phencyclidine (PCP) Not Detected (NotDetected); THC/Cannabinoid Screen Detected (NotDetected); Tricyclic Screen Not Detected (NotDetected)
== END 2018-06-26 20:25 | disposition short-term general hospital (02) ==
LOC: MADERS 17:56
DX: B17.9 Acute viral hepatitis, unspecified (principal); R79.89 Other specified abnormal findings of blood chemistry; F41.9 Anxiety disorder, unspecified; F17.210 Nicotine dependence, cigarettes, uncomplicated; Z87.442 Personal history of urinary calculi; Z79.891 Long term (current) use of opiate analgesic; Z79.899 Other long term (current) drug therapy
CPT/HCPCS: 36415; 71045; 80053; 80306; 83605; 83690; 84443; 84484; 85025; 87040; 93005; 96361; 96365; 96375; J0780; J2060; J2270; J2543; J3490; J7050

== ENCOUNTER 2018-06-30 19:35 | Emergency (ER) | payer OTHER ==
[2018-06-30 20:35] LABS: Hemoglobin 13.9 g/dL (12.0-16.0); Hypochromia SLIGHT = 6-15 cells (100X) (0-5/hpf); MDiff Complete? YES; Mean Corpuscular HGB CONC 31.4 g/dL (32.0-36.0); Mean Corpuscular Hemoglobin 28.4 pg (27.0-31.0); Mean Corpuscular Volume 90.3 fL (78.0-98.0); Platelet Count 302 thou/uL (130-400); Platelet Morphology Comment Appears Adequate; RBC Distribution Width 15.7 % (11.5-14.5); RBC Morphology Abnormal
[2018-06-30 20:40] LABS: ALT (SGPT) 118 U/L (8-55); AST (SGOT) 58 U/L (5-34); Acetaminophen Less than 6.0 mcg/mL (10.0-30.0); Albumin 4.5 g/dL (3.5-5.0); Alcohol Less than 10 mg/dL (Less than 10); Alkaline Phosphatase 149 U/L (40-150); Anion Gap 15 mmol/L (10-20); BUN (Urea Nitrogen) 11 mg/dL (7.0-18.7); Bilirubin, Total 1.1 mg/dL (0.2-1.2); Calc. Creatinine Clearance 0 mL/min (70-130); Calcium 9.8 mg/dL (7.8-10.44); Carbon Dioxide 23 mmol/L (22-29); Chloride 107 mmol/L (98-107); Estimated GFR-MDRD 90; Globulin 3.7 g/dL (2.4-3.5); Glucose 104 mg/dL (70-105); Protein, Total 8.2 g/dL (6.0-8.3); Salicylate Less than 8.0 mg/dL (15.0-30.0); Sodium 142 mmol/L (136-145)
[2018-06-30] MEDS ORDERED: ALPRAZolam 0.5 MG TAB ONE (20:42)
[2018-06-30] MEDS ORDERED: HYDROmorphone 0.5 MG/0.5 ML SYRINGE ONE (20:43)
[2018-06-30 20:50] LABS: Potassium 2.8 mmol/L (3.5-5.1)
[2018-06-30] MEDS ORDERED: Potassium Chloride 20 MEQ TAB ONE (21:01)
[2018-06-30 22:15] LABS: Bilirubin Small (Negative); Blood, Urine Negative (Negative); Clarity Hazy (Clear); Glucose, Urine (Dipstick) Negative (Negative); Leukocyte Trace (Negative); Nitrite Negative (Negative); Protein, Urine (Dipstick) Trace mg/dL (Neg-Trace)
[2018-06-30 22:16] LABS: Pregnancy Test - Urine (BHCG) Negative (Negative); Pregu Control Background? CLEAR/WHITE (CLR/WHITE); Pregu Control Bar Appear? YES (CONTROL BAR)
[2018-06-30 22:21] LABS: Bacteria/HPF Rare-Few HPF (None Seen); RBC/HPF 0-3 HPF (0-3)
[2018-06-30 22:23] LABS: Amphetamine Not Detected (NotDetected); Barbiturates Screen Not Detected (NotDetected); Benzodiazepine Screen Not Detected (NotDetected); Cocaine Metabolite Screen Not Detected (NotDetected); Medtox Control Line Valid? VALID (VALID); Methadone Not Detected (NotDetected); Methamphetamine Not Detected (NotDetected); Opiate Screen Detected (NotDetected); Oxycodone Screen Not Detected (NotDetected); Phencyclidine (PCP) Not Detected (NotDetected); THC/Cannabinoid Screen Detected (NotDetected); Tricyclic Screen Not Detected (NotDetected)
[2018-06-30 22:50] LABS: #Monocytes 0.9 thou/uL (0.11-0.59); #Neutrophils 16.9 thou/uL (1.40-6.50); %Basophils 0.6 % (0.0-1.0); %Eosinophils 0.2 % (0.0-10.0); %Lymphocytes 18.2 % (21.0-51.0); %Monocytes 4.3 % (0.0-10.0); %Neutrophils 76.7 % (42.0-75.0); Manual Diff?? YES
[2018-06-30 22:51] LABS: #Basophils 0.1 thou/uL (0.0-0.2); Lymphocytes 22 % (21-51); Monocytes 4 % (0-10); Neutrophil 71 % (42-75); Reactive Lymphocytes 3 % (0-10)
[2018-06-30 23:35] LABS: #Basophils 0.1 thou/uL (0.0-0.2); #Lymphocytes 4.9 thou/uL (1.20-3.40); #Monocytes 0.9 thou/uL (0.11-0.59); #Neutrophils 16.2 thou/uL (1.40-6.50); %Basophils 0.5 % (0.0-1.0); %Eosinophils 0.2 % (0.0-10.0); %Lymphocytes 22.1 % (21.0-51.0); %Monocytes 4.1 % (0.0-10.0); %Neutrophils 73.2 % (42.0-75.0); Mean Corpuscular HGB CONC 32.1 g/dL (32.0-36.0); Mean Corpuscular Hemoglobin 28.8 pg (27.0-31.0); Mean Corpuscular Volume 89.8 fL (78.0-98.0); Mean Platelet Volume 5.8 fL (7.4-10.4); Platelet Count 285 thou/uL (130-400); RBC Distribution Width 16.3 % (11.5-14.5); Red Blood Cell (RBC) Count 4.52 mill/uL (4.20-5.40); White Blood Cell (WBC) Count 22.1 thou/uL (4.8-10.8)
[2018-06-30] MEDS ORDERED: Fentanyl 100 MCG/2 ML VIAL ONE (23:42)
[2018-06-30] MEDS ORDERED: Lidocaine 1% 20 ML MDV ONE (23:42)
--- NOTE | 2018-06-30 23:48 | CT ---
CT BRAIN: 06/30/18 HISTORY: 32-year-old with history of altered mental status. Noncontrast enhanced CT images of the brain obtained from base of the skull through the vertex. Brain and bone windows obtained. CT images of the brain demonstrates the brain to be unremarkable. No evidence of intracranial masses , hemorrhages, strokes or contusions seen. Ventricles are of normal size. IMPRESSION: Unremarkable CT brain. POS: [facility]
[2018-06-30 23:49] LABS: Anion Gap 12 mmol/L (10-20); BUN (Urea Nitrogen) 10 mg/dL (7.0-18.7); Calc. Creatinine Clearance 0 mL/min (70-130); Calcium 9.4 mg/dL (7.8-10.44); Carbon Dioxide 23 mmol/L (22-29); Chloride 107 mmol/L (98-107); Estimated GFR-MDRD Greater than 90; Glucose 104 mg/dL (70-105); Potassium 3.3 mmol/L (3.5-5.1); Sodium 139 mmol/L (136-145)
[2018-07-01] MEDS ORDERED: Potassium Chloride 20 MEQ TAB ONE (01:24)
== END 2018-07-01 01:47 | disposition short-term general hospital (02) ==
LOC: MADERS 19:35
DX: E87.6 Hypokalemia (principal); R41.82 Altered mental status, unspecified; D72.829 Elevated white blood cell count, unspecified; R79.89 Other specified abnormal findings of blood chemistry; F17.210 Nicotine dependence, cigarettes, uncomplicated; F41.9 Anxiety disorder, unspecified
CPT/HCPCS: 70450; 80053; 80306; 80307; 81003; 81015; 81025; 83735; 84443; 85025; 96372; 96374; J1170; J2001; J3010

== ENCOUNTER 2018-10-31 17:57 | Emergency (ER) | payer OTHER, SELFPAY ==
[~2018-10-31 17:57] MED LIST changes: +Acetaminophen 500 MG TAB ONE; -Iopamidol 370 76% 100 ML VIAL ONE; +Penicillin V Potassium 250 MG TAB ONE
== END 2018-10-31 18:39 | disposition home or self-care (01) ==
LOC: MADERS 17:57
DX: K02.9 Dental caries, unspecified (principal); F17.210 Nicotine dependence, cigarettes, uncomplicated; Z87.442 Personal history of urinary calculi; Z71.6 Tobacco abuse counseling
CPT/HCPCS: 99406

== ENCOUNTER 2018-11-25 07:50 | Emergency (ER) | payer SELFPAY ==
[2018-11-25] MEDS ORDERED: Acetaminophen 500 MG TAB ONE (08:18)
[2018-11-25] MEDS ORDERED: Ondansetron ODT 4 MG TAB ONE (08:18)
== END 2018-11-25 08:50 | disposition home or self-care (01) ==
LOC: MADERS 07:50
DX: B34.9 Viral infection, unspecified (principal); F41.9 Anxiety disorder, unspecified; F17.210 Nicotine dependence, cigarettes, uncomplicated; Z71.6 Tobacco abuse counseling
CPT/HCPCS: 87804; 99406; Q0162

== ENCOUNTER 2019-02-24 22:05 | Emergency (ER) | payer SELFPAY ==
[~2019-02-24 22:05] MED LIST changes: -Acetaminophen 500 MG TAB ONE; +Iopamidol 370 76% 100 ML VIAL ONE; -Penicillin V Potassium 250 MG TAB ONE
[2019-02-24] MEDS ORDERED: Morphine 4 MG/ML VIAL ONE (22:27)
[2019-02-24] MEDS ORDERED: Sodium Chloride 0.9% 1,000 ML ONE (22:27)
[2019-02-24 22:46] LABS: #Basophils 0.1 thou/uL (0.0-0.2); #Eosinphils 0.2 thou/uL (0.0-0.7); #Lymphocytes 1.8 thou/uL (1.20-3.40); #Monocytes 0.7 thou/uL (0.11-0.59); #Neutrophils 5.2 thou/uL (1.40-6.50); %Basophils 1.2 % (0.0-1.0); %Eosinophils 2.3 % (0.0-10.0); %Monocytes 8.7 % (0.0-10.0); %Neutrophils 64.7 % (42.0-75.0); Hemoglobin 12.7 g/dL (12.0-16.0); Mean Corpuscular HGB CONC 31.1 g/dL (32.0-36.0); Mean Corpuscular Hemoglobin 30.2 pg (27.0-31.0); Mean Corpuscular Volume 97.2 fL (78.0-98.0); Mean Platelet Volume 6.6 fL (7.4-10.4); Platelet Count 320 thou/uL (130-400); RBC Distribution Width 14.7 % (11.5-14.5); Red Blood Cell (RBC) Count 4.21 mill/uL (4.20-5.40)
[2019-02-24] MEDS ORDERED: HYDROmorphone 0.5 MG/0.5 ML SYRINGE ONE (22:46)
[2019-02-24 23:03] LABS: ALT (SGPT) 13 U/L (8-55); AST (SGOT) 18 U/L (5-34); Albumin 4.1 g/dL (3.5-5.0); Alkaline Phosphatase 156 U/L (40-110); Anion Gap 15 mmol/L (10-20); BUN (Urea Nitrogen) 13 mg/dL (7.0-18.7); Bilirubin, Total 0.3 mg/dL (0.2-1.2); Calc. Creatinine Clearance 0 mL/min (70-130); Calcium 9.3 mg/dL (7.8-10.44); Carbon Dioxide 23 mmol/L (22-29); Chloride 105 mmol/L (98-107); Estimated GFR-MDRD 89; Globulin 3.4 g/dL (2.4-3.5); Glucose 113 mg/dL (70-105); Potassium 3.5 mmol/L (3.5-5.1); Protein, Total 7.5 g/dL (6.0-8.3); Sodium 139 mmol/L (136-145)
[2019-02-24 23:12] LABS: Bilirubin Negative (Negative); Blood, Urine Negative (Negative); Clarity Clear (Clear); Glucose, Urine (Dipstick) Negative (Negative); Leukocyte Negative (Negative); Nitrite Negative (Negative); Protein, Urine (Dipstick) Negative (Neg-Trace)
[2019-02-24] MEDS ORDERED: Acetaminophen 500 MG TAB ONE (23:13)
[2019-02-24 23:16] LABS: Amphetamine Not Detected (NotDetected); Benzodiazepine Screen Detected (NotDetected); Cocaine Metabolite Screen Not Detected (NotDetected); Methadone Not Detected (NotDetected); Methamphetamine Not Detected (NotDetected); Opiate Screen Detected (NotDetected); Phencyclidine (PCP) Not Detected (NotDetected); THC/Cannabinoid Screen Detected (NotDetected); Tricyclic Screen Not Detected (NotDetected)
[2019-02-24 23:17] LABS: Barbiturates Screen Not Detected (NotDetected); Medtox Control Line Valid? VALID (VALID); Oxycodone Screen Not Detected (NotDetected)
[2019-02-24 23:20] LABS: Pregnancy Test - Urine (BHCG) Negative (Negative); Pregu Control Background? CLEAR/WHITE (CLR/WHITE); Pregu Control Bar Appear? YES (CONTROL BAR)
--- NOTE | 2019-02-24 23:23 | CT ---
CT OF THE CHEST, ABDOMEN AND PELVIS WITH IV CONTRAST INDICATION: 33-year-old female with pain and fever COMPARISON: CT the abdomen and pelvis dated June 20, 2018 and March 10, 2017 FINDINGS: CHEST: Lungs: There are airspace opacities within the left upper lobe suspicious for bronchopneumonia. Patch y opacities are also present within the posterior segment of the right upper lobe. Pleural space: No effusion. Mediastinum: There is an 11 mm left suprahilar lymph node. There is a 1.4 cm right suprahilar lymph n ode. There are shotty appearing lymph nodes within the middle mediastinum. Axilla: No pathologically enlarged lymph nodes. ABDOMEN: Lung bases: Clear Liver: No focal lesion. Gallbladder: Surgically absent Pancreas: Normal. Adrenal glands: Normal. Spleen: Normal. Kidneys and ureters: Normal. No hydronephrosis. Vasculature: Normal. Lymph nodes:No lymphadenopathy. Free fluid in abdomen:No free fluid is evident. PELVIS: Small and large bowel: Normal Appendix:Normal Bladder: Normal. Rectal and perirectal soft tissues:Normal. Reproductive structures: Not visible, presumably surgically absent. The right posterior pelvic hypode nse mass is relatively stable in size measuring 4.9 x 2.6 cm. This was thought to reflect an endometrioma on a prior pelvic ultrasound evaluation dated 08/31/2016. Free fluid in pelvis: No free fluid is evident. Lymphadenopathy pelvis: No lymphadenopathy is evident. Osseous structures: There is bilateral sacroiliitis. No suspicious osseous lesion is evident. No acut e fracture or subluxation demonstrated. There is scattered degenerative and osteoarthritic changes. Soft tissues:Normal. IMPRESSION: 1. Bilateral upper lobe bronchopneumonia. 2. Enlarged lymph nodes of both hilar regions and mediastinum may be reactive in nature. 3. Bilateral sacroiliitis. Findings may be related to ankylosing spondylitis, rheumatoid arthritis or enteropathic arthritis. 4. Stable right posterior pelvic mass. This was evaluated on a prior pelvic ultrasound and thought to reflect an endometrioma.
[2019-02-24] MEDS ORDERED: Azithromycin 250 MG TAB ONE (23:31)
[2019-02-24] MEDS ORDERED: Ketorolac Tromethamine 30 MG/ML VIAL ONE (23:31)
[2019-02-24] MEDS ORDERED: Amoxicillin/Potassium Clav 875 MG TAB ONE (23:31)
[2019-02-24] MEDS ORDERED: Cyclobenzaprine 10 MG TAB ONE (23:31)
== END 2019-02-25 00:20 | disposition home or self-care (01) ==
LOC: MADERS 22:05
DX: J18.9 Pneumonia, unspecified organism (principal); M54.5 Low back pain; R94.6 Abnormal results of thyroid function studies; F41.9 Anxiety disorder, unspecified; F17.210 Nicotine dependence, cigarettes, uncomplicated; Z79.899 Other long term (current) drug therapy
CPT/HCPCS: 71260; 74177; 80053; 80306; 81003; 81025; 83605; 84443; 85025; 87040; 87086; 87804; 96361; 96374; 96375; J1170; J1885; J2270; J7050; Q9967

== ENCOUNTER 2019-05-30 17:39 | Emergency (ER) | payer SELFPAY ==
[2019-05-30 18:17] LABS: Bilirubin Negative (Negative); Blood, Urine Negative (Negative); Clarity Clear (Clear); Glucose, Urine (Dipstick) Negative (Negative); Leukocyte Negative (Negative); Nitrite Negative (Negative); Protein, Urine (Dipstick) Negative (Neg-Trace); Urobilinogen 0.2 mg/dL (Less than 2)
--- NOTE | 2019-05-30 18:29 | RAD ---
EXAM: Chest PA and lateral: HISTORY: Cough COMPARISON: 06/26/2018 FINDINGS: Patchy infiltrate in the left lower lobe consistent with pneumonia. Heart and mediastinum appear unremarkable. Osseous structures are unremarkable. IMPRESSION: Left lower lobe infiltrate. Follow-up recommended.
[2019-05-30] MEDS ORDERED: Azithromycin 250 MG TAB ONE (18:43)
[2019-05-30] MEDS ORDERED: cefTRIAXone\\ROCEPHIN 1 GM VIAL ONE (18:43)
[2019-05-30] MEDS ORDERED: Lidocaine 1% 20 ML MDV ONE (18:43)
== END 2019-05-30 19:15 | disposition home or self-care (01) ==
LOC: MADERS 17:39
DX: J15.9 Unspecified bacterial pneumonia (principal); M54.5 Low back pain; F41.9 Anxiety disorder, unspecified; F31.9 Bipolar disorder, unspecified; F20.9 Schizophrenia, unspecified; F17.210 Nicotine dependence, cigarettes, uncomplicated; Z87.442 Personal history of urinary calculi
CPT/HCPCS: 71046; 81003; 96372; J0696; J2001

== ENCOUNTER 2019-08-20 21:07 | Emergency (ER) | payer MEDICAID, OTHER ==
[2019-08-20] MEDS ORDERED: Aspirin Chewable 81 MG TAB ONE (21:43)
[2019-08-20] MEDS ORDERED: Lorazepam 2 MG/ML VIAL ONE (21:43)
--- NOTE | 2019-08-20 21:51 | RAD ---
XR Chest 1 View Portable HISTORY: Shortness of breath, chest pain COMPARISON: 05/30/2019 FINDINGS: The heart size is normal. The lungs are well expanded without focal areas of consolidation, pneumothorax or pleural effusions. IMPRESSION: No radiographic evidence of acute cardiopulmonary process.
[2019-08-20 21:58] LABS: BHCG - Serum Negative (NEGATIVE); Pregs Control Background? CLEAR/WHITE (CLR/WHITE); Pregs Control Bar Appear? YES (CONTROL BAR)
[2019-08-20 22:00] LABS: #Basophils 0.1 thou/uL (0.0-0.2); #Lymphocytes 3.3 thou/uL (1.20-3.40); #Monocytes 0.5 thou/uL (0.11-0.59); #Neutrophils 6.5 thou/uL (1.40-6.50); %Basophils 0.9 % (0.0-1.0); %Eosinophils 0.1 % (0.0-10.0); %Lymphocytes 31.9 % (21.0-51.0); %Monocytes 4.6 % (0.0-10.0); %Neutrophils 62.6 % (42.0-75.0); Hemoglobin 13.5 g/dL (12.0-16.0); Mean Corpuscular HGB CONC 31.2 g/dL (32.0-36.0); Mean Corpuscular Hemoglobin 28.7 pg (27.0-31.0); Mean Corpuscular Volume 91.9 fL (78.0-98.0); Mean Platelet Volume 6.2 fL (7.4-10.4); Platelet Count 438 thou/uL (130-400); RBC Distribution Width 14.5 % (11.5-14.5); Red Blood Cell (RBC) Count 4.69 mill/uL (4.20-5.40); White Blood Cell (WBC) Count 10.4 thou/uL (4.8-10.8)
[2019-08-20] MEDS ORDERED: Ondansetron PF 4 MG/2 ML Vial ONE (22:01)
[2019-08-20 22:02] LABS: ALT (SGPT) 18 U/L (8-55); AST (SGOT) 17 U/L (5-34); Albumin 4.4 g/dL (3.5-5.0); Alkaline Phosphatase 169 U/L (40-110); Anion Gap 17 mmol/L (10-20); BUN (Urea Nitrogen) 11 mg/dL (7.0-18.7); Bilirubin, Total 0.3 mg/dL (0.2-1.2); Calc. Creatinine Clearance 0 mL/min (70-130); Calcium 9.9 mg/dL (7.8-10.44); Carbon Dioxide 23 mmol/L (22-29); Chloride 103 mmol/L (98-107); Estimated GFR-MDRD Greater than 90; Globulin 4.3 g/dL (2.4-3.5); Glucose 112 mg/dL (70-105); Lipase 20 U/L (8-78); Potassium 3.7 mmol/L (3.5-5.1); Protein, Total 8.7 g/dL (6.0-8.3); Sodium 139 mmol/L (136-145)
== END 2019-08-20 22:25 | disposition home or self-care (01) ==
LOC: MADERS 21:07
DX: F41.0 Panic disorder [episodic paroxysmal anxiety] (principal); F41.9 Anxiety disorder, unspecified; F31.9 Bipolar disorder, unspecified; F20.9 Schizophrenia, unspecified; Z79.899 Other long term (current) drug therapy
CPT/HCPCS: 71045; 80053; 83690; 84484; 84703; 85025; 93005; 94760; 96374; 96375; J2060; J2405

== ENCOUNTER 2019-08-21 06:03 | Emergency (ER) | payer MEDICAID, OTHER ==
[2019-08-21 06:44] LABS: #Basophils 0.1 thou/uL (0.0-0.2); #Eosinphils 0.1 thou/uL (0.0-0.7); #Monocytes 0.5 thou/uL (0.11-0.59); #Neutrophils 4.3 thou/uL (1.40-6.50); %Basophils 1.6 % (0.0-1.0); %Eosinophils 0.6 % (0.0-10.0); %Lymphocytes 37.8 % (21.0-51.0); %Monocytes 6.4 % (0.0-10.0); %Neutrophils 53.6 % (42.0-75.0); Hemoglobin 14.9 g/dL (12.0-16.0); Mean Corpuscular HGB CONC 29.5 g/dL (32.0-36.0); Mean Corpuscular Hemoglobin 27.6 pg (27.0-31.0); Mean Corpuscular Volume 93.5 fL (78.0-98.0); Mean Platelet Volume 6.3 fL (7.4-10.4); Platelet Count 393 thou/uL (130-400); RBC Distribution Width 14.5 % (11.5-14.5); Red Blood Cell (RBC) Count 5.39 mill/uL (4.20-5.40)
[2019-08-21 06:53] LABS: ALT (SGPT) 17 U/L (8-55); AST (SGOT) 16 U/L (5-34); Albumin 4.2 g/dL (3.5-5.0); Alkaline Phosphatase 160 U/L (40-110); Anion Gap 18 mmol/L (10-20); BHCG - Serum Negative (NEGATIVE); BUN (Urea Nitrogen) 11 mg/dL (7.0-18.7); Bilirubin, Total 0.4 mg/dL (0.2-1.2); Calc. Creatinine Clearance 0 mL/min (70-130); Calcium 9.5 mg/dL (7.8-10.44); Carbon Dioxide 21 mmol/L (22-29); Chloride 104 mmol/L (98-107); Estimated GFR-MDRD Greater than 90; Globulin 4.2 g/dL (2.4-3.5); Glucose 131 mg/dL (70-105); Potassium 3.6 mmol/L (3.5-5.1); Pregs Control Background? CLEAR/WHITE (CLR/WHITE); Pregs Control Bar Appear? YES (CONTROL BAR); Protein, Total 8.4 g/dL (6.0-8.3); Sodium 139 mmol/L (136-145)
[2019-08-21 06:54] LABS: Acetaminophen Less than 6.0 mcg/mL (10.0-30.0); Alcohol Less than 10 mg/dL (Less than 10); Salicylate Less than 8.0 mg/dL (15.0-30.0)
[2019-08-21] MEDS ORDERED: Lorazepam 2 MG/ML VIAL ONE (06:55)
[2019-08-21 08:54] LABS: Amphetamine Not Detected (NotDetected); Barbiturates Screen Not Detected (NotDetected); Benzodiazepine Screen Detected (NotDetected); Cocaine Metabolite Screen Not Detected (NotDetected); Medtox Control Line Valid? VALID (VALID); Methadone Not Detected (NotDetected); Methamphetamine Not Detected (NotDetected); Opiate Screen Not Detected (NotDetected); Oxycodone Screen Not Detected (NotDetected); Phencyclidine (PCP) Not Detected (NotDetected); THC/Cannabinoid Screen Detected (NotDetected); Tricyclic Screen Not Detected (NotDetected)
[2019-08-21] MEDS ORDERED: Ondansetron PF 4 MG/2 ML Vial ONE (10:39)
[2019-08-21] MEDS ORDERED: Ondansetron ODT 4 MG TAB ONE (10:41)
[2019-08-21 17:34] LABS: Free T4 (Free Thyroxine) 0.98 ng/dL (0.70-1.48)
== END 2019-08-21 10:46 | disposition home or self-care (01) ==
LOC: MADERS 06:03
DX: F41.9 Anxiety disorder, unspecified (principal); R11.10 Vomiting, unspecified; R07.9 Chest pain, unspecified; F31.9 Bipolar disorder, unspecified; F20.9 Schizophrenia, unspecified; F17.210 Nicotine dependence, cigarettes, uncomplicated; Z87.442 Personal history of urinary calculi; Z79.899 Other long term (current) drug therapy
CPT/HCPCS: 51701; 80053; 80306; 80307; 84439; 84443; 84479; 84481; 84484; 84703; 85025; 93005; 94760; 96372; 96374; J2060; J2405; Q0162

== ENCOUNTER 2019-09-05 18:44 | Emergency (ER) | payer MEDICAID, OTHER ==
[2019-09-05] MEDS ORDERED: Fluorescein Opthalmic Strip ONE (19:06)
[2019-09-05] MEDS ORDERED: Tetracaine 0.5% OPHTH SOLN/PF 4 ML BOT ONE (19:06)
[2019-09-05] MEDS ORDERED: Tobramycin Sulfate 0.3% Ophth Susp 5 ml Bottle ONE (19:13)
[2019-09-05] MEDS ORDERED: Amoxicillin/Potassium Clav 875 MG TAB ONE (19:15)
== END 2019-09-05 19:16 | disposition home or self-care (01) ==
LOC: MADERS 18:44
DX: H10.503 Unspecified blepharoconjunctivitis, bilateral (principal); F41.9 Anxiety disorder, unspecified; F31.9 Bipolar disorder, unspecified; F20.9 Schizophrenia, unspecified; F17.210 Nicotine dependence, cigarettes, uncomplicated; Z79.899 Other long term (current) drug therapy
CPT/HCPCS: 99283

== ENCOUNTER 2019-12-04 08:45 | Emergency (ER) | payer OTHER, SELFPAY ==
[2019-12-04] MEDS ORDERED: Bupivacaine PF 0.5% 30 ML VIAL ONE (09:03)
== END 2019-12-04 09:17 | disposition home or self-care (01) ==
LOC: MADERS 08:45
DX: K08.89 Other specified disorders of teeth and supporting structures (principal); F41.9 Anxiety disorder, unspecified; F31.9 Bipolar disorder, unspecified; F20.9 Schizophrenia, unspecified; F17.210 Nicotine dependence, cigarettes, uncomplicated; Z79.899 Other long term (current) drug therapy
CPT/HCPCS: 64400; S0020

== ENCOUNTER 2020-01-15 07:59 | Emergency (ER) | payer OTHER, SELFPAY ==
[2020-01-15] MEDS ORDERED: Bupivacaine PF 0.5% 30 ML VIAL ONE (08:09)
[2020-01-15] MEDS ORDERED: Bupivacaine HCl 0.5%/Epinephrine 1:200,000/PF 30 ml Vial ONE (08:10)
== END 2020-01-15 08:20 | disposition home or self-care (01) ==
LOC: MADERS 07:59
DX: K03.81 Cracked tooth (principal); K02.9 Dental caries, unspecified; F17.210 Nicotine dependence, cigarettes, uncomplicated; F41.9 Anxiety disorder, unspecified; F20.9 Schizophrenia, unspecified; Z87.442 Personal history of urinary calculi; Z79.899 Other long term (current) drug therapy
CPT/HCPCS: 64400; S0020

== ENCOUNTER 2020-01-27 12:47 | Emergency (ER) | payer OTHER, SELFPAY | END 2020-01-27 13:20 | disposition home or self-care (01) | LOC: MADERS 12:47 | DX: H10.9 Unspecified conjunctivitis (principal); F41.9 Anxiety disorder, unspecified; F31.9 Bipolar disorder, unspecified; F17.210 Nicotine dependence, cigarettes, uncomplicated; F20.9 Schizophrenia, unspecified; Z87.442 Personal history of urinary calculi | CPT/HCPCS: 99282 ==

== ENCOUNTER 2020-01-30 10:30 | Emergency (ER) | payer OTHER ==
[2020-01-30] MEDS ORDERED: Fluorescein Opthalmic Strip ONE (10:49)
[2020-01-30] MEDS ORDERED: Tetracaine 0.5% PF 4 ML BOT ONE (10:49)
== END 2020-01-30 11:35 | disposition home or self-care (01) ==
LOC: MADERS 10:30
DX: H20.00 Unspecified acute and subacute iridocyclitis (principal); F41.9 Anxiety disorder, unspecified; F31.9 Bipolar disorder, unspecified; F20.9 Schizophrenia, unspecified; Z87.442 Personal history of urinary calculi; Z79.899 Other long term (current) drug therapy
CPT/HCPCS: 99283

== ENCOUNTER 2020-02-07 04:56 | Emergency (ER) | payer OTHER ==
[2020-02-07] MEDS ORDERED: Ibuprofen 400 MG TAB ONE (06:14)
--- NOTE | 2020-02-07 08:05 | RAD ---
EXAM: 3 views of the right wrist HISTORY: Wrist pain COMPARISON: None FINDINGS: 3 views of the right wrist shows no evidence of acute fracture or dislocation. Mild soft ti ssue swelling is seen. No degenerative changes are present. IMPRESSION: No evidence of acute osseous abnormality.
== END 2020-02-07 06:25 | disposition home or self-care (01) ==
LOC: MADERS 04:56
DX: S63.501A Unspecified sprain of right wrist, initial encounter (principal); S80.212A Abrasion, left knee, initial encounter; S80.211A Abrasion, right knee, initial encounter; S50.11XA Contusion of right forearm, initial encounter; F41.9 Anxiety disorder, unspecified; F31.9 Bipolar disorder, unspecified; F20.9 Schizophrenia, unspecified; F17.210 Nicotine dependence, cigarettes, uncomplicated; Z87.442 Personal history of urinary calculi; Z79.899 Other long term (current) drug therapy; Z85.848 Personal history of malignant neoplasm of other parts of nervous tissue; W18.30XA Fall on same level, unspecified, initial encounter

== ENCOUNTER 2020-02-09 15:56 | Emergency (ER) | payer OTHER, SELFPAY ==
[2020-02-09] MEDS ORDERED: Ondansetron ODT 4 MG TAB ONE (16:48)
[2020-02-09] MEDS ORDERED: Clindamycin 150 MG CAP ONE (16:48)
[2020-02-09] MEDS ORDERED: Ketorolac Tromethamine 30 MG/ML VIAL ONE (16:48)
== END 2020-02-09 17:10 | disposition home or self-care (01) ==
LOC: MADERS 15:56
DX: K04.7 Periapical abscess without sinus (principal); F17.210 Nicotine dependence, cigarettes, uncomplicated; Z71.6 Tobacco abuse counseling; F41.9 Anxiety disorder, unspecified; F31.9 Bipolar disorder, unspecified; F20.9 Schizophrenia, unspecified; Z87.442 Personal history of urinary calculi; Z79.899 Other long term (current) drug therapy
CPT/HCPCS: 90471; 96372; J1885; Q0162

== ENCOUNTER 2020-03-05 12:12 | Emergency (ER) | payer SELFPAY ==
--- NOTE | 2020-03-05 13:46 | RAD ---
Chest AP view INDICATION: Dyspnea COMPARISON: August 20, 2019 FINDINGS: Lungs: The lungs are clear Cardiac silhouette: The cardiomediastinal silhouette appears within normal limits. Pulmonary vasculature: Normal Pleural spaces: No pleural effusion or pneumothorax is demonstrated. Upper abdomen: No abnormality seen. Osseous structures: No acute osseous abnormality. Additional findings: None. IMPRESSION: No acute cardiopulmonary abnormality.
[2020-03-05 14:02] LABS: #Basophils 0.1 thou/uL (0.0-0.2); #Eosinphils 0.1 thou/uL (0.0-0.7); #Lymphocytes 2.7 thou/uL (1.20-3.40); #Monocytes 0.5 thou/uL (0.11-0.59); #Neutrophils 7.3 thou/uL (1.40-6.50); %Basophils 1.3 % (0.0-1.0); %Eosinophils 1.3 % (0.0-10.0); %Lymphocytes 25.1 % (21.0-51.0); %Monocytes 4.9 % (0.0-10.0); %Neutrophils 67.5 % (42.0-75.0); Hemoglobin 12.1 g/dL (12.0-16.0); Mean Corpuscular HGB CONC 32.1 g/dL (32.0-36.0); Mean Corpuscular Hemoglobin 31.9 pg (27.0-31.0); Mean Corpuscular Volume 99.6 fL (78.0-98.0); Mean Platelet Volume 5.9 fL (7.4-10.4); Platelet Count 272 thou/uL (130-400); RBC Distribution Width 14.4 % (11.5-14.5); White Blood Cell (WBC) Count 10.8 thou/uL (4.8-10.8)
[2020-03-05 14:15] LABS: BHCG - Serum Negative (NEGATIVE); Pregs Control Background? CLEAR/WHITE (CLR/WHITE); Pregs Control Bar Appear? YES (CONTROL BAR)
[2020-03-05 14:18] LABS: ALT (SGPT) 19 U/L (8-55); AST (SGOT) 56 U/L (5-34); Albumin 3.7 g/dL (3.5-5.0); Alkaline Phosphatase 156 U/L (40-110); Anion Gap 14 mmol/L (10-20); BUN (Urea Nitrogen) 11 mg/dL (7.0-18.7); Bilirubin, Total 0.4 mg/dL (0.2-1.2); Calc. Creatinine Clearance 0 mL/min (70-130); Calcium 8.5 mg/dL (7.8-10.44); Carbon Dioxide 23 mmol/L (22-29); Chloride 106 mmol/L (98-107); Glucose 94 mg/dL (70-105); Potassium 3.3 mmol/L (3.5-5.1); Protein, Total 6.7 g/dL (6.0-8.3); Sodium 140 mmol/L (136-145)
--- NOTE | 2020-03-05 14:43 | CT ---
CT OF THE ABDOMEN AND PELVIS WITHOUT IV CONTRAST INDICATION: 34-year-old female with abdominal distention COMPARISON: June 20, 2018 FINDINGS: The lack of IV contrast limits evaluation of the solid organs of the abdomen and pelvis. ABDOMEN: Lung bases: Clear Liver: No focal lesion. Gallbladder: Surgically absent Pancreas: Normal. Adrenal glands: Normal. Spleen: Normal. Kidneys and ureters: There is a 2 mm nonobstructing calculus within the superior pole of the left kid diana. No hydronephrosis is evident. No definite ureteral calculus is noted. Vasculature: Normal. Lymph nodes:No lymphadenopathy. Free fluid in abdomen:No free fluid is evident. PELVIS: Small and large bowel: Normal Appendix:Normal Bladder: Normal. Rectal and perirectal soft tissues:Normal. Reproductive structures: Surgically absent. There is a 4.9 x 3 cm hypodense mass in the right posteri or aspect of the pelvis, stable to the prior exam. Free fluid in pelvis: No free fluid is evident. Lymphadenopathy pelvis: No lymphadenopathy is evident. Osseous structures: No acute osseous abnormality. No destructive osteolytic or osteoblastic lesion i s identified. There is scattered degenerative and osteoarthritic changes. Soft tissues:Normal. IMPRESSION: 1. Left nephrolithiasis. No definite ureteral calculus or hydronephrosis demonstrated. 2. Stable right posterior pelvic hypodense mass lesion. The lesion was much larger on the comparison examination in 2017 and may have reflected an endometrioma. 3. Cholecystectomy. Hysterectomy and bilateral oophorectomy.
[2020-03-05] MEDS ORDERED: Furosemide 40 MG TAB ONE (15:22)
== END 2020-03-05 15:30 | disposition home or self-care (01) ==
LOC: MADERS 12:12
DX: R14.0 Abdominal distension (gaseous) (principal); M79.89 Other specified soft tissue disorders; F31.9 Bipolar disorder, unspecified; F41.9 Anxiety disorder, unspecified; F17.210 Nicotine dependence, cigarettes, uncomplicated; Z79.899 Other long term (current) drug therapy
CPT/HCPCS: 71045; 74176; 80053; 83880; 84484; 84703; 85025; 93005

== ENCOUNTER 2020-03-23 13:48 | Emergency (ER) | payer OTHER, SELFPAY | END 2020-03-23 15:20 | disposition home or self-care (01) | LOC: MADERS 13:48 | DX: G62.9 Polyneuropathy, unspecified (principal); F17.210 Nicotine dependence, cigarettes, uncomplicated; Z87.442 Personal history of urinary calculi; Z85.830 Personal history of malignant neoplasm of bone | CPT/HCPCS: 99283 ==

== ENCOUNTER 2020-05-24 09:57 | Emergency (ER) | payer OTHER ==
[2020-05-24] MEDS ORDERED: Clindamycin 150 MG CAP ONE (10:22)
[2020-05-24] MEDS ORDERED: Ondansetron ODT 4 MG TAB ONE (10:22)
[2020-05-24] MEDS ORDERED: Ketorolac Tromethamine 30 MG/ML VIAL ONE (10:22)
== END 2020-05-24 10:40 | disposition home or self-care (01) ==
LOC: MADERS 09:57
DX: K04.7 Periapical abscess without sinus (principal); J01.00 Acute maxillary sinusitis, unspecified; F17.210 Nicotine dependence, cigarettes, uncomplicated; Z87.442 Personal history of urinary calculi; Z85.830 Personal history of malignant neoplasm of bone; Z79.899 Other long term (current) drug therapy
CPT/HCPCS: 96372; 99283; J1885; Q0162

== ENCOUNTER 2020-06-24 20:01 | Emergency (ER) | payer OTHER ==
[2020-06-24] MEDS ORDERED: Ondansetron ODT 4 MG TAB ONE (20:46)
[2020-06-24] MEDS ORDERED: Ketorolac Tromethamine 30 MG/ML VIAL ONE (20:46)
[2020-06-24 21:26] LABS: #Basophils 0.1 thou/uL (0.0-0.2); #Eosinphils 0.3 thou/uL (0.0-0.7); #Lymphocytes 5.8 thou/uL (1.20-3.40); #Monocytes 0.6 thou/uL (0.11-0.59); #Neutrophils 5.4 thou/uL (1.40-6.50); %Basophils 0.7 % (0.0-1.0); %Eosinophils 2.4 % (0.0-10.0); %Lymphocytes 47.4 % (21.0-51.0); %Monocytes 4.8 % (0.0-10.0); %Neutrophils 44.6 % (42.0-75.0); Hemoglobin 13.9 g/dL (12.0-16.0); Mean Corpuscular HGB CONC 30.9 g/dL (32.0-36.0); Mean Corpuscular Hemoglobin 27.9 pg (27.0-31.0); Mean Corpuscular Volume 90.2 fL (78.0-98.0); Mean Platelet Volume 7.3 fL (7.4-10.4); Platelet Count 305 thou/uL (130-400); RBC Distribution Width 16.4 % (11.5-14.5); Red Blood Cell (RBC) Count 4.97 mill/uL (4.20-5.40); White Blood Cell (WBC) Count 12.2 thou/uL (4.8-10.8)
[2020-06-24 21:37] LABS: Anion Gap 15 mmol/L (10-20); BUN (Urea Nitrogen) 12 mg/dL (7.0-18.7); Calc. Creatinine Clearance 0 mL/min (70-130); Carbon Dioxide 27 mmol/L (22-29); Chloride 101 mmol/L (98-107); Glucose 69 mg/dL (70-105); Potassium 3.4 mmol/L (3.5-5.1); Sodium 140 mmol/L (136-145)
== END 2020-06-24 21:47 | disposition home or self-care (01) ==
LOC: MADERS 20:01
DX: R10.9 Unspecified abdominal pain (principal); R19.7 Diarrhea, unspecified; R11.2 Nausea with vomiting, unspecified; F31.9 Bipolar disorder, unspecified; F20.9 Schizophrenia, unspecified; F17.210 Nicotine dependence, cigarettes, uncomplicated; Z79.899 Other long term (current) drug therapy
CPT/HCPCS: 36415; 74176; 80048; 85025; 96372; J1885; Q0162

== ENCOUNTER 2020-08-12 16:29 | Emergency (ER) | payer OTHER ==
[2020-08-12 17:22] LABS: #Basophils 0.1 thou/uL (0.0-0.2); #Lymphocytes 2.9 thou/uL (1.20-3.40); #Monocytes 0.3 thou/uL (0.11-0.59); #Neutrophils 6.5 thou/uL (1.40-6.50); %Basophils 0.5 % (0.0-1.0); %Eosinophils 0.5 % (0.0-10.0); %Lymphocytes 29.9 % (21.0-51.0); %Monocytes 2.7 % (0.0-10.0); %Neutrophils 66.4 % (42.0-75.0); Hemoglobin 15.4 g/dL (12.0-16.0); Mean Corpuscular Hemoglobin 27.8 pg (27.0-31.0); Mean Corpuscular Volume 92.5 fL (78.0-98.0); Mean Platelet Volume 7.1 fL (7.4-10.4); Platelet Count 346 thou/uL (130-400); RBC Distribution Width 16.6 % (11.5-14.5); Red Blood Cell (RBC) Count 5.53 mill/uL (4.20-5.40); White Blood Cell (WBC) Count 9.8 thou/uL (4.8-10.8)
[2020-08-12 17:28] LABS: INR-International Normal Ratio 0.8; PTT 24.8 sec (22.9-36.1); Prothrombin Time 11.7 sec (12.0-14.7)
[2020-08-12 17:38] LABS: ALT (SGPT) 36 U/L (8-55); AST (SGOT) 34 U/L (5-34); Albumin 4.4 g/dL (3.5-5.0); Alkaline Phosphatase 228 U/L (40-110); Anion Gap 18 mmol/L (10-20); BUN (Urea Nitrogen) 8 mg/dL (7.0-18.7); Bilirubin, Total 0.3 mg/dL (0.2-1.2); Calc. Creatinine Clearance 0 mL/min (70-130); Calcium 10.1 mg/dL (7.8-10.44); Carbon Dioxide 22 mmol/L (22-29); Chloride 103 mmol/L (98-107); Globulin 4.2 g/dL (2.4-3.5); Glucose 138 mg/dL (70-105); Potassium 3.7 mmol/L (3.5-5.1); Protein, Total 8.6 g/dL (6.0-8.3); Sodium 139 mmol/L (136-145)
[2020-08-12] MEDS ORDERED: Acetaminophen 500 MG TAB ONE (17:41)
[2020-08-12] MEDS ORDERED: Sodium Chloride 0.9% 1,000 ML ONE (17:41)
[2020-08-12 18:06] LABS: BHCG - Serum Negative (NEGATIVE); Pregs Control Background? CLEAR/WHITE (CLR/WHITE); Pregs Control Bar Appear? YES (CONTROL BAR)
[2020-08-12 18:11] LABS: Bilirubin Negative (Negative); Blood, Urine Trace (Negative); Clarity Clear (Clear); Glucose, Urine (Dipstick) Negative (Negative); Ketone, Urine Negative (Negative); Leukocyte Negative (Negative); Nitrite Negative (Negative); Protein, Urine (Dipstick) Negative (Neg-Trace); Urobilinogen 0.2 mg/dL (Less than 2)
[2020-08-12] MEDS ORDERED: Morphine 4 MG/ML VIAL ONE (18:25)
[2020-08-12 18:26] LABS: Bacteria/HPF Rare-Few HPF (None Seen); RBC/HPF 0-3 HPF (0-3); Squamous Epithelial 0-3 HPF (0-3); WBC/HPF 0-3 HPF (0-3)
== END 2020-08-12 19:03 | disposition home or self-care (01) ==
LOC: MADERS 16:29
DX: K92.0 Hematemesis (principal); R10.9 Unspecified abdominal pain; F17.210 Nicotine dependence, cigarettes, uncomplicated
CPT/HCPCS: 74176; 80053; 81003; 81015; 83690; 84703; 85025; 85610; 85730; 96374; J2270; J7050

== ENCOUNTER 2020-10-20 15:44 | Emergency (ER) | payer OTHER ==
[2020-10-21 13:18] LABS: SARS-CoV-2 PCR by NAA DETECTED (NotDetected)
== END 2020-10-20 17:25 | disposition home or self-care (01) ==
LOC: MADERS 15:44
DX: U07.1 COVID-19 (principal); F17.210 Nicotine dependence, cigarettes, uncomplicated; Z87.442 Personal history of urinary calculi; Z85.830 Personal history of malignant neoplasm of bone
CPT/HCPCS: 99283; U0003; U0005

== ENCOUNTER 2021-02-22 19:36 | Emergency (ER) | payer OTHER ==
[2021-02-22 20:44] LABS: #Basophils 0.1 thou/uL (0.0-0.2); #Eosinphils 0.2 thou/uL (0.0-0.7); #Monocytes 0.5 thou/uL (0.11-0.59); #Neutrophils 4.8 thou/uL (1.40-6.50); %Basophils 1.4 % (0.0-1.0); %Eosinophils 2.6 % (0.0-10.0); %Lymphocytes 41.2 % (21.0-51.0); %Monocytes 4.9 % (0.0-10.0); %Neutrophils 49.9 % (42.0-75.0); Hemoglobin 12.9 g/dL (12.0-16.0); Mean Corpuscular HGB CONC 31.3 g/dL (32.0-36.0); Mean Corpuscular Hemoglobin 30.6 pg (27.0-31.0); Mean Corpuscular Volume 97.9 fL (78.0-98.0); Mean Platelet Volume 6.1 fL (7.4-10.4); Platelet Count 252 thou/uL (130-400); Red Blood Cell (RBC) Count 4.22 mill/uL (4.20-5.40); White Blood Cell (WBC) Count 9.6 thou/uL (4.8-10.8)
[2021-02-22 20:52] LABS: Pregnancy Test - Urine (BHCG) Negative (Negative)
[2021-02-22 20:53] LABS: Pregu Control Background? CLEAR/WHITE (CLR/WHITE); Pregu Control Bar Appear? YES (CONTROL BAR); Specific Gravity 1.011 (1.002-1.036)
[2021-02-22 20:54] LABS: Bilirubin Negative (Negative); Blood, Urine Negative (Negative); Clarity Clear (Clear); Glucose, Urine (Dipstick) Negative (Negative); Ketone, Urine Negative (Negative); Leukocyte Negative (Negative); Nitrite Negative (Negative); Protein, Urine (Dipstick) Negative (Neg-Trace); Urobilinogen 0.2 mg/dL (Less than 2); pH, Urine 5.5 (5.0-9.0)
[2021-02-22 20:59] LABS: Amphetamine Not Detected (NotDetected); Barbiturates Screen Not Detected (NotDetected); Benzodiazepine Screen Detected (NotDetected); Cocaine Metabolite Screen Not Detected (NotDetected); Medtox Control Line Valid? VALID (VALID); Methadone Not Detected (NotDetected); Methamphetamine Not Detected (NotDetected); Opiate Screen Not Detected (NotDetected); Oxycodone Screen Not Detected (NotDetected); Phencyclidine (PCP) Not Detected (NotDetected); THC/Cannabinoid Screen Detected (NotDetected); Tricyclic Screen Detected (NotDetected)
[2021-02-22 21:05] LABS: ALT (SGPT) 26 U/L (8-55); AST (SGOT) 20 U/L (5-34); Acetaminophen Less than 6.0 mcg/mL (10.0-30.0); Alcohol Less than 10 mg/dL (Less than 10); Alkaline Phosphatase 119 U/L (40-110); Anion Gap 13 mmol/L (10-20); BUN (Urea Nitrogen) 14 mg/dL (7.0-18.7); Bilirubin, Total 0.2 mg/dL (0.2-1.2); Calc. Creatinine Clearance 0 mL/min (70-130); Calcium 9.5 mg/dL (7.8-10.44); Carbon Dioxide 25 mmol/L (22-29); Chloride 108 mmol/L (98-107); Globulin 3.1 g/dL (2.4-3.5); Glucose 123 mg/dL (70-105); Potassium 3.6 mmol/L (3.5-5.1); Protein, Total 7.1 g/dL (6.0-8.3); Salicylate Less than 8.0 mg/dL (15.0-30.0); Sodium 142 mmol/L (136-145)
== END 2021-02-23 07:22 | disposition home or self-care (01) ==
LOC: MADERS 19:36
DX: T40.421A Poisoning by tramadol, accidental (unintentional), initial encounter (principal); F17.210 Nicotine dependence, cigarettes, uncomplicated; F41.9 Anxiety disorder, unspecified; F31.9 Bipolar disorder, unspecified; F20.9 Schizophrenia, unspecified
CPT/HCPCS: 80053; 80306; 80307; 81003; 81025; 85025; 93005

== ENCOUNTER 2021-03-16 15:24 | Emergency (ER) | payer OTHER | END 2021-03-16 17:54 | disposition left against medical advice (07) | LOC: MADERS 15:24 | DX: Z53.21 Procedure and treatment not carried out due to patient leaving prior to being seen by health care provider (principal) ==

== ENCOUNTER 2021-04-07 12:53 | Emergency (ER) | payer OTHER ==
[2021-04-07] MEDS ORDERED: HYDROcodone/Acetaminophen 5/325 mg Tablet ONE (16:39)
[2021-04-07] MEDS ORDERED: predniSONE 20 MG TAB ONE (16:39)
[2021-04-08 13:23] LABS: SARS-CoV-2 PCR by NAA Not Detected (NotDetected)
== END 2021-04-07 17:14 | disposition home or self-care (01) ==
LOC: MADERS 12:53
DX: J02.9 Acute pharyngitis, unspecified (principal); Z20.822 Contact with and (suspected) exposure to COVID-19; Z79.899 Other long term (current) drug therapy; F17.210 Nicotine dependence, cigarettes, uncomplicated
CPT/HCPCS: 87081; 87430; 87804; 99283; J7512; U0003; U0005

== ENCOUNTER 2021-04-16 09:10 | Emergency (ER) | payer OTHER ==
[2021-04-16] MEDS ORDERED: Amoxicillin/Potassium Clav 875 MG TAB ONE (09:40)
[2021-04-16] MEDS ORDERED: Bupivacaine PF 0.5% 30 ML VIAL ONE (09:40)
[2021-04-16] MEDS ORDERED: Lidocaine 1% (PF) 30 ML VIAL ONE (09:40)
== END 2021-04-16 10:45 | disposition home or self-care (01) ==
LOC: MADERS 09:10
DX: K05.00 Acute gingivitis, plaque induced (principal); K03.81 Cracked tooth; K02.9 Dental caries, unspecified; F17.210 Nicotine dependence, cigarettes, uncomplicated; Z87.442 Personal history of urinary calculi; Z79.899 Other long term (current) drug therapy
CPT/HCPCS: 64400; 96372; J2001; S0020

== ENCOUNTER 2021-11-20 23:21 | Emergency (ER) | payer OTHER ==
[2021-11-20] MEDS ORDERED: Amoxicillin/Potassium Clav 875 MG TAB ONE (23:54)
[2021-11-20] MEDS ORDERED: Ketorolac Tromethamine 30 MG/ML VIAL ONE (23:54)
== END 2021-11-21 00:14 | disposition home or self-care (01) ==
LOC: MADERS 23:21
DX: K04.7 Periapical abscess without sinus (principal); K02.9 Dental caries, unspecified; K03.2 Erosion of teeth; F17.210 Nicotine dependence, cigarettes, uncomplicated; Z87.442 Personal history of urinary calculi; Z85.89 Personal history of malignant neoplasm of other organs and systems; Z79.899 Other long term (current) drug therapy
CPT/HCPCS: 96372; 99282; J1885

== ENCOUNTER 2022-02-20 23:05 | Emergency (ER) | payer OTHER ==
[2022-02-20] MEDS ORDERED: Ketorolac Tromethamine 30 MG/ML VIAL ONE (23:20)
== END 2022-02-20 23:39 | disposition home or self-care (01) ==
LOC: MADERS 23:05
DX: K02.9 Dental caries, unspecified (principal); F17.210 Nicotine dependence, cigarettes, uncomplicated
CPT/HCPCS: 96372; 99282; J1885

== ENCOUNTER 2022-12-26 10:35 | Emergency (ER) | payer OTHER ==
[2022-12-26] MEDS ORDERED: Tetracaine 0.5% PF 4 ML BOT ONE ×2 (11:42→11:47)
== END 2022-12-26 12:30 | disposition home or self-care (01) ==
LOC: MADERS 10:35
DX: H16.9 Unspecified keratitis (principal); F17.210 Nicotine dependence, cigarettes, uncomplicated; Z79.899 Other long term (current) drug therapy
CPT/HCPCS: 99283

== ENCOUNTER 2023-01-01 11:23 | Emergency (ER) | payer OTHER ==
[2023-01-01] MEDS ORDERED: Fluorescein Opthalmic Strip ONE (11:54)
[2023-01-01] MEDS ORDERED: Tetracaine 0.5% PF 4 ML BOT ONE (11:54)
[2023-01-01] MEDS ORDERED: traMADol HCl 50 MG TAB ONE (12:14)
== END 2023-01-01 12:51 | disposition home or self-care (01) ==
LOC: MADERS 11:23
DX: H57.11 Ocular pain, right eye (principal); H20.00 Unspecified acute and subacute iridocyclitis; I10 Essential (primary) hypertension; F17.210 Nicotine dependence, cigarettes, uncomplicated; Z79.899 Other long term (current) drug therapy
CPT/HCPCS: 99283

== ENCOUNTER 2023-01-02 10:54 | Emergency (ER) | payer OTHER ==
[2023-01-02] MEDS ORDERED: Fluorescein Opthalmic Strip ONE (11:11)
[2023-01-02] MEDS ORDERED: Tetracaine 0.5% PF 4 ML BOT ONE (11:11)
== END 2023-01-02 11:59 | disposition home or self-care (01) ==
LOC: MADERS 10:54
DX: H20.9 Unspecified iridocyclitis (principal); F17.210 Nicotine dependence, cigarettes, uncomplicated
CPT/HCPCS: 99283

== ENCOUNTER 2024-01-25 18:33 | Emergency (ER) | payer SELFPAY ==
[2024-01-25 20:11] LABS: #Basophils 0.1 thou/uL (0.0-0.2); #Eosinophils 0.4 thou/uL (0.0-0.7); #Lymphocytes 3.8 thou/uL (1.20-3.40); #Monocytes 0.6 thou/uL (0.11-0.59); #Neutrophils 5.8 thou/uL (1.40-6.50); %Basophils 0.7 % (0.0-1.0); %Lymphocytes 35.2 % (21.0-51.0); Hemoglobin 11.9 g/dL (12.0-16.0); Mean Corpuscular Hemoglobin 31.3 pg (27.0-31.0); Mean Corpuscular Volume 97.5 fl (78.0-98.0); Mean Platelet Volume 7.3 fL (7.4-10.4); Platelet Count 285 10x3/uL (130-400); RBC Distribution Width 14.2 % (11.5-14.5); White Blood Cell (WBC) Count 10.7 10x3/uL (4.8-10.8)
== END 2024-01-25 21:11 | disposition home or self-care (01) ==
LOC: MADERS 18:33
DX: K92.1 Melena (principal); F17.210 Nicotine dependence, cigarettes, uncomplicated
CPT/HCPCS: 36415; 82274; 85025; 99283

== ENCOUNTER 2024-03-08 14:06 | Emergency (ER) | payer SELFPAY | END 2024-03-08 14:55 | disposition left against medical advice (07) | LOC: MADERS 14:06 | DX: Z53.21 Procedure and treatment not carried out due to patient leaving prior to being seen by health care provider (principal) ==

== ENCOUNTER 2024-04-04 16:46 | Emergency (ER) | payer SELFPAY ==
[2024-04-04] MEDS ORDERED: Acetaminophen 500 MG TAB ONE (17:19)
[2024-04-04 17:53] LABS: Hemoglobin 12.3 g/dL (12.0-16.0); Mean Corpuscular HGB CONC 30.7 g/dL (32.0-36.0); Mean Corpuscular Hemoglobin 29.8 pg (27.0-31.0); Mean Corpuscular Volume 97.1 fl (78.0-98.0); Mean Platelet Volume 7.3 fL (7.4-10.4); Platelet Count 320 10x3/uL (130-400); RBC Distribution Width 14.5 % (11.5-14.5); Red Blood Cell (RBC) Count 4.12 mill/uL (4.20-5.40); White Blood Cell (WBC) Count 11.2 10x3/uL (4.8-10.8)
[2024-04-04 17:55] LABS: ALT (SGPT) 11 U/L (Less than 34); AST (SGOT) 23 U/L (11-34); Albumin 3.7 g/dL (3.1-4.5); Alkaline Phosphatase 146 U/L (40-110); Anion Gap 12 mmol/L (10-20); BUN (Urea Nitrogen) 9 mg/dL (7.0-18.7); Bilirubin, Total 0.2 mg/dL (0.3-1.2); Calc. Creatinine Clearance 0 mL/min (70-130); Calcium 8.5 mg/dL (7.8-10.44); Carbon Dioxide 24 mmol/L (22-29); Chloride 108 mmol/L (98-107); Estimated GFR 105; Globulin 4.4 g/dL (2.4-3.5); Glucose 76 mg/dL (70-105); Protein, Total 8.1 g/dL (6.0-8.3); Sodium 140 mmol/L (136-145)
[2024-04-04 18:06] LABS: Eosinophils 4 % (0-10); Lymphocytes 29 % (21-51); MDiff Complete? YES; Manual Diff?? YES; Monocytes 4 % (0-10); Neutrophil 45 % (42-75); Reactive Lymphocytes 18 % (0-10)
[2024-04-04 18:09] LABS: Platelet Adequacy Comment Appears Adequate; RBC Morph Comment Within Normal Limits
== END 2024-04-04 19:26 | disposition home or self-care (01) ==
LOC: MADERS 16:46
DX: T39.311A Poisoning by propionic acid derivatives, accidental (unintentional), initial encounter (principal); M54.2 Cervicalgia; E04.1 Nontoxic single thyroid nodule
CPT/HCPCS: 70491; 71046; 80053; 85025; Q9967

== ENCOUNTER 2024-04-13 14:47 | Emergency (ER) | payer SELFPAY | END 2024-04-13 15:13 | disposition home or self-care (01) | LOC: MADERS 14:47 | DX: N61.0 Mastitis without abscess (principal) | CPT/HCPCS: 99283 ==

== ENCOUNTER 2024-05-30 08:31 | Emergency (ER) | payer SELFPAY ==
[2024-05-30] MEDS ORDERED: Tetracaine 0.5% PF 4 ML BOT ONE (08:38)
[2024-05-30] MEDS ORDERED: Fluorescein Opthalmic Strip ONE (08:38)
== END 2024-05-30 09:43 | disposition home or self-care (01) ==
LOC: MADERS 08:31
DX: H16.9 Unspecified keratitis (principal)
CPT/HCPCS: 99283

== ENCOUNTER 2024-10-04 15:18 | Emergency (ER) | payer SELFPAY ==
[2024-10-04] MEDS ORDERED: Acetaminophen 500 MG TAB ONE (15:32)
[2024-10-04] MEDS ORDERED: diphenhydrAMINE 50 MG/ML VIAL ONE (15:32)
[2024-10-04] MEDS ORDERED: Metoclopramide HCl 10 MG (2 mL) VIAL ONE (15:33)
[2024-10-04 15:58] LABS: #Basophils 0.1 thou/uL (0.0-0.2); #Eosinophils 0.2 thou/uL (0.0-0.7); #Lymphocytes 5.0 thou/uL (1.20-3.40); #Monocytes 0.5 thou/uL (0.11-0.59); #Neutrophils 4.2 thou/uL (1.40-6.50); %Basophils 1.3 % (0.0-1.0); %Eosinophils 2.3 % (0.0-10.0); %Lymphocytes 49.3 % (21.0-51.0); %Monocytes 5.1 % (0.0-10.0); %Neutrophils 42.0 % (42.0-75.0); Hematocrit 39.7 % (36.0-47.0); Hemoglobin 12.2 g/dL (12.0-16.0); Mean Corpuscular Hemoglobin 28.7 pg (27.0-31.0); Mean Corpuscular Volume 93.4 fl (78.0-98.0); Platelet Count 337 10x3/uL (130-400); Red Blood Cell (RBC) Count 4.25 mill/uL (4.20-5.40); White Blood Cell (WBC) Count 10.1 10x3/uL (4.8-10.8)
[2024-10-04 16:01] LABS: INR-International Normal Ratio 1.0; Prothrombin Time 12.8 sec (12.0-14.7)
[2024-10-04 16:02] LABS: PTT 26.5 sec (22.9-36.1)
[2024-10-04 16:11] LABS: ALT (SGPT) 101 U/L (Less than 34); AST (SGOT) 64 U/L (11-34); Albumin 3.7 g/dL (3.1-4.5); Alkaline Phosphatase 215 U/L (40-110); Anion Gap 18 mmol/L (10-20); BUN (Urea Nitrogen) 13 mg/dL (7.0-18.7); Bilirubin, Total 0.3 mg/dL (0.3-1.2); Calc. Creatinine Clearance 0 mL/min (70-130); Calcium 9.4 mg/dL (7.8-10.44); Carbon Dioxide 22 mmol/L (22-29); Chloride 106 mmol/L (98-107); Globulin 4.4 g/dL (2.4-3.5); Glucose 121 mg/dL (70-105); Potassium 3.7 mmol/L (3.5-5.1); Sodium 142 mmol/L (136-145)
[2024-10-04] MEDS ORDERED: Dexamethasone 10 MG/ML VIAL ONE (16:29)
== END 2024-10-04 21:32 | disposition home or self-care (01) ==
LOC: MADERS 15:18
DX: I67.841 Reversible cerebrovascular vasoconstriction syndrome (principal); Z55.6 Problems related to health literacy
CPT/HCPCS: 70496; 70498; 80053; 85025; 85610; 85730; 96365; 96375; J1100; J1200; J1630; J2765; J7030